=== PATIENT | male | born 1935 | race Caucasian/White ===

== ENCOUNTER 2016-11-10 16:21 | Emergency (ER) | payer MEDICARE, OTHER ==
--- NOTE | 2016-11-10 17:18 | UC ---
Dizzy HPI HPI Summary: 81 yo male with a 1 week hx of progressively worsening dizziness has a chronic cough which he attributes to post nasal drip no f/c no CP no worsening edema has had some dyspnea on exertion Had a stent yr ago symptoms worsen with turning head symptoms worsen while in car chronic dizziness (>2yrs) if he lays down and turns head to right - History Of Current Complaint Chief Complaint: UC Stated Complaint: LIGH HEADED Time Seen by Provider: 11/10/16 16:24 Hx Obtained From: Patient Onset/Duration: Gradual Onset, Lasting Days Timing: Constant Severity Initially: Mild Severity Currently: Moderate Pain Intensity: 0 Pain Scale Used: 0-10 Numeric Character: Dizzy - unsteady Aggravating Factor(s): Position Change Alleviating Factor(s): Nothing Associated Signs And Symptoms: Positive: SOB - with exertion, Unsteady Gait - Allergies/Home Medications Allergies/Adverse Reactions: Allergies Allergy/AdvReac Type Severity Reaction Status Date / Time Hydrocodone AdvReac Intermediate GI Upset Verified 11/14/14 13:04 Home Medications: Home Medications Fluticasone/Vilanterol MDI(NF) [Breo Ellipta MDI (NF)] 1 puff INH DAILY [History Confirmed 11/10/16] PMH/Surg Hx/FS Hx/Imm Hx Previously Healthy: Yes Endocrine History Of: Denies: Diabetes, Thyroid Disease Cardiovascular History Of: Reports: Cardiac Disorders - CAD Denies: Hypertension Respiratory History Of: Reports: Asthma Denies: COPD GI/ History Of: Denies: Ulcer - Surgical History Surgical History: Yes Surgery Procedure, Year, and Place: cardiac stent 2000, hernia x 2 - Family History Known Family History: Positive: Hypertension - Social History Alcohol Use: None Substance Use Type: None Smoking Status (MU): Never Smoked Tobacco Review of Systems Constitutional: Fatigue Skin: Negative Eyes: Negative ENT: Nasal Discharge Respiratory: Shortness Of Breath, Cough Cardiovascular: Negative Gastrointestinal: Negative Genitourinary: Negative Motor: Negative Neurovascular: Negative Musculoskeletal: Negative Neurological: Weakness Psychological: Negative All Other Systems Reviewed And Are Negative: Yes Physical Exam Triage Information Reviewed: Yes Appearance: Well-Appearing, No Pain Distress, Well-Nourished Vital Signs: Initial Vital Signs Temp 99 F 11/10/16 16:27 Pulse 98 11/10/16 16:27 Resp 20 11/10/16 16:27 BP 179/107 11/10/16 16:27 Pulse Ox 98 11/10/16 16:27 Vital Signs Reviewed: Yes Eyes: Positive: Conjunctiva Clear, Other: - no nystagmus ENT: Positive: Nasal congestion, TMs normal. Negative: Hearing grossly normal, Tonsillar exudate, Trismus, Muffled/hoarse voice Neck: Positive: Supple, Nontender Respiratory: Positive: No respiratory distress, No accessory muscle use Cardiovascular: Positive: RRR. Negative: Tachycardia, Bradycardia Musculoskeletal: Positive: Edema @ Neurological: Positive: Alert Psychological Exam: Normal Skin Exam: Normal Diagnostics - EKG Cardiac Rate: NL Cardiac Rhythm: Sinus: Normal Ectopy: PVCs ST Segment: Normal Dizzy Course/Dx - Differential Dx/Diagnosis Provider Diagnoses: dysequilibrium/motion sickness. elevated BP Discharge - Discharge Plan Condition: Stable Disposition: HOME Prescriptions: Meclizine HCl [Meclizine 25] 25 mg PO TID PRN #12 tab PRN Reason: Dizziness Patient Education Materials: Dizziness (ED) Referrals: Jameson Reyes MD [Primary Care Provider] - As Soon As Possible Additional Instructions: blood work pending recheck for new or worsening symptoms
--- NOTE | 2016-11-10 17:43 | RAD ---
Indication: Cough, dyspnea on exertion. Comparison: August 30, 2015 and June 07, 2010 CT. Technique: Upright AP and lateral chest views obtained with the patient in a wheelchair. Report: Unchanged moderate elevation of the LEFT hemidiaphragm. Associated mild LEFT basilar atelectasis. No alveolar consolidation concerning for pneumonia, focal pulmonary lesion, pleural effusion, pneumothorax. Negative for cardiomegaly. Unremarkable central pulmonary vasculature and mediastinal contours. IMPRESSION: No acute intrathoracic process evident. Chronic elevation of the LEFT hemidiaphragm with associated basilar atelectasis.
[2016-11-10] MEDS ORDERED: Meclizine TAB* 12.5 MG PO ONE ×2 (17:57→17:58)
[2016-11-10 18:03] VITALS: BP 146/92
[2016-11-11 12:12] LABS: Hematocrit 49 % (42-52); Mean Corpuscular HGB Conc 33 g/dl (31-36); Mean Corpuscular Hemoglobin 29 pg (27-31); Mean Corpuscular Volume 88 fL (80-94); Mean Platelet Volume 9 um3 (7.4-10.4); Red Blood Count 5.57 10^6/ul (4.0-5.4); Red Cell Distribution Width 17 % (10.5-15); White Blood Count 6.4 10^3/ul (3.5-10.8)
[2016-11-11 12:19] LABS: BUN/Creatinine Ratio 13.3 (8-20); Calcium 9.1 mg/dL (8.6-10.3); EGFR African American 51.9 (>60); EGFR Non-African American 40.3 (>60); Potassium 4.5 mmol/L (3.5-5.0)
== END 2016-11-10 18:25 | disposition home or self-care (01) ==
LOC: UCEAST 16:21
DX: R42 Dizziness and giddiness (principal); T75.3XXA Motion sickness, initial encounter; Y92.9 Unspecified place or not applicable; R03.0 Elevated blood-pressure reading, without diagnosis of hypertension; I25.10 Atherosclerotic heart disease of native coronary artery without angina pectoris; Z88.5 Allergy status to narcotic agent
CPT/HCPCS: 36415; 71020; 80048; 85025; 93005; 99213; A9270-GY; G0463

== ENCOUNTER 2016-12-07 16:19 | Emergency (ER) | payer MEDICARE, OTHER ==
[2016-12-07] MEDS ORDERED: Aspirin Low Dose CHEW TAB* 81 MG PO ONE (17:13)
[2016-12-07 17:47] LABS: Hematocrit 49 % (42-52); Hemoglobin 16.1 g/dl (14.0-18.0); Mean Corpuscular HGB Conc 33 g/dl (31-36); Mean Corpuscular Hemoglobin 29 pg (27-31); Mean Corpuscular Volume 88 fL (80-94); Mean Platelet Volume 9 um3 (7.4-10.4); Red Blood Count 5.59 10^6/ul (4.0-5.4); Red Cell Distribution Width 16 % (10.5-15); White Blood Count 10.3 10^3/ul (3.5-10.8)
[2016-12-07 17:48] LABS: Add Diff/Slide Review? Slide Review Added; Comments Flag Yes
--- NOTE | 2016-12-07 18:00 | RAD ---
Indication: Chest pain. Epigastric/heartburn pain beginning last night. Comparison: December 07, 2016 CT abdomen and November 10, 2016 chest radiograph. Technique: Dual energy PA chest Report: Unchanged moderate elevation of the LEFT hemidiaphragm with associated basilar compressive atelectasis. The lungs and pleural spaces are otherwise clear. Negative for pneumothorax. Upper normal heart size. Unremarkable central pulmonary vasculature and mediastinal contours. Negative for free air beneath the diaphragm. IMPRESSION: Chronic moderate elevation of the LEFT hemidiaphragm with associated basilar atelectasis. No acute cardiopulmonary process evident.
[2016-12-07 18:58] LABS: ALT 19 U/L (7-52); Albumin 4.1 g/dL (3.2-5.2); Alkaline Phosphatase 39 U/L (34-104); BUN/Creatinine Ratio 13.8 (8-20); Blood Urea Nitrogen 19 mg/dL (6-24); CO2 Carbon Dioxide 21 mmol/L (22-32); Calcium 9.6 mg/dL (8.6-10.3); Chloride 99 mmol/L (101-111); EGFR African American 63.8 (>60); EGFR Non-African American 49.6 (>60); Globulin 3.5 g/dL (2-4); Glucose 105 mg/dL (70-100); Sodium 130 mmol/L (133-145); Total Protein 7.6 g/dL (6.4-8.9)
[2016-12-07 19:00] LABS: Troponin I 0.01 ng/mL (<0.04)
--- NOTE | 2016-12-07 20:05 | ED ---
Pastor Truong Matthew, scribed for Jim Gomez MD on 12/07/16 at 1807 . Abdominal Pain/Male - HPI Summary HPI Summary: An 81 y/o male presents to the ED for constant epigastric abdominal pain since last night. The pain is rated between 5-7 in severity. The patient was sent to [facility] by his PCP for the epigastric abdominal pain, where an CT of the A/P was taken. He was then referred to the ED. Associated symptoms include abdominal bloating. He denies chest pain, nausea, vomiting, diarrhea, constipation, fever , and chills. He had a normal BM yesterday. He's also been on Abx for a recent sinus infection. - History of Current Complaint Chief Complaint: EDAbdPain Stated Complaint: ABD PAIN Time Seen by Provider: 12/07/16 17:54 Hx Obtained From: Patient Onset/Duration: Lasting Days, Still Present Timing: Constant Severity Initially: Moderate Severity Currently: Moderate Pain Intensity: 5 Pain Scale Used: 0-10 Numeric Location: Epigastric Radiates: No Associated Signs And Symptoms: Negative: Fever, Chest Pain, Constipation, Nausea , Vomiting, Diarrhea - Allergies/Home Medications Allergies/Adverse Reactions: Allergies Allergy/AdvReac Type Severity Reaction Status Date / Time Hydrocodone AdvReac Intermediate GI Upset Verified 12/07/16 14:21 PMH/Surg Hx/FS Hx/Imm Hx Endocrine/Hematology History: Denies: Hx Diabetes, Hx Thyroid Disease Cardiovascular History: Denies: Hx Hypertension Respiratory History: Reports: Hx Asthma Denies: Hx Chronic Obstructive Pulmonary Disease (COPD) GI History: Denies: Hx Ulcer - Surgical History Surgery Procedure, Year, and Place: cardiac stent 2000, hernia x 2 Infectious Disease History: No Infectious Disease History: Denies: Hx Clostridium Difficile, Hx Hepatitis, Hx Human Immunodeficiency Virus (HIV), Hx of Known/Suspected MRSA, Hx Shingles, Hx Tuberculosis, Hx Known/ Suspected VRE, Hx Known/Suspected VRSA, History Other Infectious Disease, Traveled Outside the [place] in Last 30 Days - Family History Known Family History: Positive: Hypertension - Social History Alcohol Use: None Substance Use Type: Reports: None Smoking Status (MU): Never Smoked Tobacco Review of Systems Constitutional: Negative Negative: Fever, Chills Eyes: Negative ENT: Negative Cardiovascular: Negative Negative: Chest Pain Respiratory: Negative Gastrointestinal: Other - abdominal bloating Positive: Abdominal Pain - epigastric . Negative: Vomiting, Diarrhea, Nausea Genitourinary: Negative Musculoskeletal: Negative Skin: Negative Neurological: Negative Psychological: Normal All Other Systems Reviewed And Are Negative: Yes Physical Exam - Summary Physical Exam Summary: VITAL SIGNS: Reviewed. GENERAL: Patient is a well developed and nourished male who is lying comfortable in the stretcher. Patient is not in any acute respiratory distress. HEAD AND FACE: Normocephalic and atraumatic. EYES: PERRLA, EOMI x 2, No injected conjunctiva. EARS: Hearing grossly intact. Ear canals and tympanic membranes are WNL. MOUTH: Oropharynx within normal limits. NECK: Supple, trachea is midline, no adenopathy, no JVD. CHEST: Symmetric, no tenderness at palpation LUNGS: Clear to auscultation bilaterally. No wheezing or crackles. CVS: RRR,, S1 and S2 present, no murmurs or gallops appreciated. ABDOMEN: Soft, positive periumbilical and epigastric tenderness. No signs of distention. Positive bowel sounds. No rebound no guarding, and no masses palpated. No abdominal bruit or pulsations. EXTREMITIES: FROM in all major joints, no edema, no cyanosis or clubbing. NEURO: Alert and oriented x 3. No acute neurological deficits. Speech is normal. SKIN: Dry and warm Triage Information Reviewed: Yes Vital Signs On Initial Exam: Initial Vitals Temp Pulse Resp BP Pulse Ox 98 F 97 18 167/98 99 12/07/16 16:22 12/07/16 16:22 12/07/16 16:22 12/07/16 16:22 12/07/16 16:22 Vital Signs Reviewed: Yes Diagnostics - Vital Signs Vital Signs Temp Pulse Resp BP Pulse Ox 12/07/16 17:33 35 89 12/07/16 17:31 135/101 12/07/16 16:22 98 F 97 18 167/98 99 - Laboratory Lab Results: Lab Results 12/07/16 12/07/16 Range/Units 17:35 17:35 WBC 10.3 (3.5-10.8) 10^3/ul RBC 5.59 H (4.0-5.4) 10^6/ul Hgb 16.1 (14.0-18.0) g/dl Hct 49 (42-52) % MCV 88 (80-94) fL MCH 29 (27-31) pg MCHC 33 (31-36) g/dl RDW 16 H (10.5-15) % Plt Count 181 (150-450) 10^3/ul MPV 9 (7.4-10.4) um3 Neut % (Auto) 76.9 (38-83) % Lymph % (Auto) 15.4 L (25-47) % Graves % (Auto) 6.2 (1-9) % Eos % (Auto) 0.5 (0-6) % Baso % (Auto) 1.0 (0-2) % Absolute Neuts (auto) 7.9 H (1.5-7.7) 10^3/ul Absolute Lymphs (auto) 1.6 (1.0-4.8) 10^3/ul Absolute Monos (auto) 0.6 (0-0.8) 10^3/ul Absolute Eos (auto) 0 (0-0.6) 10^3/ul Absolute Basos (auto) 0.1 (0-0.2) 10^3/ul Absolute Nucleated RBC 0.01 10^3/ul Nucleated RBC % 0.1 INR (Anticoag Therapy) 0.95 (0.89-1.11) Result Diagrams: 12/07/16 17:35 12/07/16 17:35 Lab Statement: Any lab studies that have been ordered have been reviewed, and results considered in the medical decision making process. - Radiology CXR Xray Interpretation: No Acute Changes - IMPRESSION: Chronic moderate elevation of the LEFT hemidiaphragm with associated basilar atelectasis. No acute cardiopulmonary process evident. Radiology Interpretation Completed By: Radiologist Abdominal Pain Fem Course/Dx - Course Assessment/Plan: An 81 y/o male presents to the ED for constant epigastric abdominal pain since last night. The pain is rated between 5-7 in severity. The patient was sent to [facility] by his PCP for the epigastric abdominal pain, where a CT of the A/P was taken. He was then referred to the ED. Associated symptoms include abdominal bloating. He denies chest pain, nausea, vomiting, diarrhea, constipation, fever, and chills. He had a normal BM yesterday. He's also been on Abx for a recent sinus infection. Blood shows WBC 5.5, sodium of 130, creatinine 1.38, glucose 105, troponin of 0.01. CXR shows chronic evaluation of left hemidiaphragm with no acute cardiopulmonary processes. Initially when the patient came into the ED, he did not c/o any chest pain. He c/o of periumbilical and epigastric pain. The patient had a CT of the A/P earlier today which showed a right sided bladder diverticulum. No masses or fluid collections and had no evidence of AAA. While in the ED, the patient reports that he passed gas and all of his symptoms have resolved. The patient was also observed in the ED for a couple of hours and the symptoms did not returned. I wanted to repeat the troponin after 4 hours; however, the patient does not want to wait and wants to go home. The patient was given instructions to return if he develops CP, SOB or any other abdominal or epigastric pain. Once again the patient was recommended to stay for a second troponin, but he refused. The patient will be going home with his who also agrees the patient is safe to go home. The patient is A&Ox3 and hemodynamically stable. - Diagnoses Differential Diagnosis/HQI/PQRI: ACS, AMI, Bowel Obstruction, Constipation, Gall Bladder Disease, Urinary Tract Infection Provider Diagnoses: Abdominal pain Discharge - Discharge Plan Condition: Stable Disposition: HOME Patient Education Materials: Abdominal Pain (ED) Referrals: Jameson Reyes MD [Primary Care Provider] - 2 Days Additional Instructions: Please follow-up with your primary care physician. The documentation as recorded by the Pastor jarvis Matthew accurately reflects the service I personally performed and the decisions made by , Jim Gomez MD.
[2016-12-07 20:23] VITALS: BP 145/97
== END 2016-12-07 20:23 | disposition home or self-care (01) ==
LOC: ED 16:19
DX: R10.13 Epigastric pain (principal); I25.10 Atherosclerotic heart disease of native coronary artery without angina pectoris; J98.11 Atelectasis; N28.1 Cyst of kidney, acquired; N32.3 Diverticulum of bladder
CPT/HCPCS: 36415; 71010; 74177; 80053; 82553; 83605; 83880; 84443; 84484; 85025; 85610; 93005; 99282; A9270-GY; Q9967

== ENCOUNTER 2019-05-06 08:51 | Emergency (ER) | payer MEDICARE, OTHER ==
--- OUTSIDE RECORDS SUMMARY | 2019-05-06 08:57 | XMS REPORT | Continuity of Care Document ---
:1935 External Reference #:[id number] Author Name NasiradriannaDiya Care Team Providers Name Role Phone Jim Cortes III, MD Primary Care Physician Unavailable Payers Date Identification Numbers Payment Provider Subscriber Policy Number: [id number] Medicare Fabiano Hinojosa Tae PayID: [id number] [address] [place] [address] Policy Number: [id number] Lifetime Benefit Solution Fabiano Strong PayID: [id number] [address] [place] [address] Effective: 2004 Policy Number: [id number] 10sec Fabiano Baronener Expires: 2014 Group Number: [id number] [id number] PayID: [place] [address] Problems Active Problems Provider Date Coronary arteriosclerosis Jameson Reyes M.D.,FACP Onset: 06/14/2008 Mixed hyperlipidemia Jameson Reyes M.D.,FACP Onset: 06/14/2008 Derangement of lateral meniscus Jameson Reyes M.D.,FACP Onset: 2007 Testicular hypofunction Jameson Reyes M.D.,FACP Onset: 05/08/2010 Degenerative joint disease of pelvis Jameson Reyes M.D.,FACP Onset: Chronic rhinitis Jameson Reyes M.D.,FACP Onset: 01/20/2013 Spinal stenosis of lumbar region Jameson Reyes M.D.,FACP Onset: 2013 Osteoarthritis of hip, unspecified Virgil Rowe NP Onset: 06/24/2015 Vertigo Aurelio Davidson NP Onset: 11/13/2016 Moderate persistent asthma Jameson Reyes M.D.,FACP Onset: 11/20/2016 Note: per Dr. Hernandez History of placement of stent for coronary artery Aurelio Davidson NP Onset: 12/2016 disease Note: RCA 2010 Chronic kidney disease stage 2 Jameson Reyes M.D.,FACP Onset: 12/11/2016 Inactive Problems Difficulty speaking Jose De Jesus Rosado M.D. Onset: 03/28/2015 Inactive: 08/30/2015 Renal function tests abnormal Aurelio Davidson NP Onset: 11/13/2016 Inactive: 12/11/2016 Atherosclerotic heart disease of [place] coronary Virgil Rowe NP Onset: 2014 artery without angina pectoris Inactive: 12/10/2017 Family History Date Family Member(s) Observation Comments General No Current Problems : (age Father due to Natural Causes possible prostate 74 Years) issues Mother due to Cancer, Breast () Siblings 7 3 now First Brother Peripheral Vascular Disease (PVD) First Brother Coronary Artery Disease (CAD) First Brother Hypercholesterolemia Second Brother Heart Disease Second Brother due to Lung Cancer () Second Brother Lung Cancer First Sister due to Leukemia () - CML? Second Sister Heart Murmur valve replacement Third Sister due to Alzheimer's () Disease Social History Type Date Description Comments Sex Unknown Marital Status Occupation Retired Tobacco Use Start: Unknown Never Smoked Cigarettes Tobacco Use Start: Unknown Never Smoked Cigars Tobacco Use Start: Unknown Never Smoked A Pipe Smoking Status Reviewed: 04/27/19 Never Smoked A Pipe Smokeless Tobacco Never Used Smokeless Tobacco ETOH Use 10/14/2017 Never used alcohol Recreational Drug Use Denies Drug Use Tobacco Use Start: Unknown Patient has never smoked Exercise Type/Frequency Exercises regularly Allergies, Adverse Reactions, Alerts Active Allergies Reaction Severity Comments Date oxycodone stomach upset 04/06/2008 Lipitor dyspepsia 06/14/2008 Lescol XL dyspepsia 06/14/2008 Fluconazole 12/03/2011 Hydrocodone GI upset 02/28/2012 Delatestryl difficulty speaking/sneezing 09/28/2014 Medications Active Medications SIG Qnty Indications Ordering Date Provider Nystatin-Triamcinol apply to affected 60gm Jameson Ibanez 08/24/2018 one area 2-3 times daily Juan Reyes,FACP until symptoms 091861-5.1Unit/GM-% resolve. Cream Shingrix 0.5 milliliters 2units Jameson Ibanez 04/25/2018 50mcg intramuscular now Juan Reyes,FACP Suspension Rec and 2-3 months later repeat Nika Allergy Jameson Ibanez 12/10/2017 Juan Reyes,FACP 60mg Tablets Tramadol HCL 1-2 tablets every 6 120tabs M48.06 Jim Mackenzie 11/04/2017 50mg hours as needed Juan Cortes Tablets Furosemide take 1 tablet every 90tabs Jameson Ibanez 10/08/2017 20mg morning as needed Juan Reyes FACP Tablets Zetia 1 by mouth every day 90tabs Jim Mackenzie 10/08/2017 10mg Tablets Juan Cortes Rosuvastatin take 1 tablet by 90tabs Jameson Ibanez 04/02/2017 Calcium mouth every evening Juan Reyes,FACP 10mg Tablets Flonase Allergy 1 spray each nostril 18.200ml Jameson Ibanez 04/02/2017 Relief twice a day as Juan Reyes,GE[facility] 50mcg/Act needed Suspension Metoprolol 1 by mouth every day 90tabs I25.10 Jim Mackenzie 12/07/2016 Succinate ER Juan Cortes 25mg Tablets ER 24HR Androgel Pump 5 actuations topical 225gm E29.1 Jim Mackenzie 09/28/2014 every day Juan Cortes 20.25mg/Act (1.62%) Gel Aspirin 1 by mouth every day I25.10 Jameson Ibanez 01/22/2014 81mg Juan Reyes,FACP Tablets Breo Ellipta one inhalation daily Unknown 200-25mcg/Inh Aerosol Celebrex once daily 90caps Jim Mackenzie 200mg Juan Cortes Capsules Mometasone Furoate Unknown 50mcg/Act Suspension History Medications Cephalexin three times a day 21caps Jameson Ibanez 04/11/2018 - 500mg by mouth [facility] 04/18/2018 Capsules Medrol medrol dosepack 1pak Jameson Ibanez 04/26/2017 - 4mg Tablets as directed Juan Reyes,FACP 10/08/2017 Augmentin by mouth twice a 20tabs Jameson Ibanez 04/02/2017 - 875-125mg day Juan Reyes,FACP 04/12/2017 Tablets Tramadol HCL ER 1 by mouth twice 60caps M48.06 Jameson Ibanez 04/02/2017 - 100mg a day as needed Juan Reyes,FACP 11/04/2017 Caps ER 24HR Doxycycline Hyclate bid Unknown 03/07/2017 - 04/02/2017 50mg Capsules Fluticasone 1 spray in each 16gm Jameson Ibanez 12/11/2016 - Propionate nostril twice Juan Reyes,FACP 12/11/2016 50mcg/Act daily Suspension Mucinex twice a day as 20tabs Jameson Ibanez 12/11/2016 - 600mg Tablets needed [facility] 10/08/2017 ER 12HR Desloratadine 1 qd PO 30tabs Jameson Ibanez 12/11/2016 - 5mg Juan Reyes,FACP 03/19/2017 Tablets Ranitidine 150 one by mouth 60tabs R10.13 Aurelio Davidson NP 12/07/2016 - Maximum Strength twice a day prn 04/02/2017 150mg Tablets Doxycycline 1 by mouth twice 20tabs Jameson Ibanez 11/30/2016 - Monohydrate a day for 10d Juan Reyes,FACP 12/10/2016 100mg Tablets Augmentin by mouth twice a 20tabs Jameson Ibanez 11/20/2016 - 875-125mg day Juan Reyes,FACP 11/30/2016 Tablets Meclizine HCL 1/2-1 by mouth 30tabs Jameson Ibanez 11/20/2016 - 25mg three times a day Juan Reyes,[facility] 12/07/2016 Tablets as needed Hydroxyzine HCL 1 tab by mouth 60tabs H81.49 Aurelio Davidson NP 11/13/2016 - 25mg every 6 hours as 11/16/2016 Tablets needed for vertigo Crestor 1 by mouth every 90tabs E78.2 Jameson Ibanez 07/16/2016 - 20mg Tablets day Juan Reyes,[facility] 03/19/2017 Flovent HFA inhale 2 puffs 10.600gm R06.2 Jameson Ibanez 08/30/2015 - 44mcg/Act twice a day Juan Reyes,[facility] 03/19/2017 Aerosol Ipratropium Shaniko instill 2 sprays 15units 473.9 Jameson Ibaenz 2014 - into each nostril Juan Reyes,[facility] 08/30/2015 0.06% Solution 3 to 4 times daily as needed Fluticasone 1 spray each 1units 472.0 Jim Mackenzie 03/04/2015 - Propionate nostril in in the Juan Cortes 03/25/2015 50mcg/Act morning Suspension Ventolin HFA 2 puffs by mouth 1units 466.0 Cedric 11/17/2014 - 3 times a day Juan Bunn 11/13/2016 108(90Base) mcg/Act with spacer Aerosol Lasix 1 by mouth every 30tabs 466.0 Cedric 11/17/2014 - 20mg Tablets day Juan Bunn 03/04/2015 Axiron 2 pump under each 120doses Jameson Ibanez 07/19/2014 - 30mg/Act under arm every Juan Reyes,[facility] 09/28/2014 Solution day for daily total of 4 pumps Androgel Pump 6 actuations 3boxes 257.2 Jameson Ibanez 01/22/2014 - topical every day Juan Reyes,[facility] 07/19/2014 20.25mg/Act (1.62%) Gel Furosemide 1 po qam for 2 30tabs 782.3 Jameson Ibanez 06/12/2013 - 20mg wks then as Juan Reyes,[facility] 01/22/2014 Tablets directed Celebrex 1 by mouth every 90caps R94.4 Jameson Ibanez 11/17/2012 - 200mg day; trial Juan Reyes,[facility] 11/20/2016 Capsules holding celebrex till we follow up Lidoderm apply topically 15units 786.59 Jameson Ibanez 02/28/2012 - 5% Patches qd for 12 hrs Juan Reyes,[facility] 11/17/2012 Medrol Dosepak as directed 1Pak 693.0 Jameson Ibanez 12/03/2011 - 4mg Juan Reyes,[facility] 12/11/2011 Tablets Lamisil po every day 14tabs 112.3 Jameson Ibanez 11/28/2011 - 250mg Tablets Juan Reyes,[facility] 12/14/2011 Fluconazole 2 qd for 1 days 8tabs 112.3 Jameson Ibanez 11/23/2011 - 100mg then qd for 7 Juan Reyes,[facility] 11/28/2011 Tablets days Nystatin/Triamcinolo Apply Topically 60units 112.3 Jameson Ibanez 2011 - ne Two Times A Day Juan Reyes,[facility] 01/22/2014 If Needed To 017434-1.1Unit/GM-% Affected Area Cream Clarinex 1 po qd prn 90tabs 473.9 Jim Mackenzie 08/08/2011 - 5mg Tablets Juan Cortes 01/22/2014 Fexofenadine HCL Take 1 Tablet 90tabs 473.9 Jameson Ibanez 02/20/2011 - 60mg Daily as Needed Juan Reyes,[facility] 08/08/2011 Tablets Meclizine HCL tid 45tabs 386.12 Jameson Ibanez 11/16/2010 - 25mg Juan Reyes,[facility] 08/08/2011 Tablets Tramadol HCL four times a day 120tabs R07.9 Aurelio Davidson NP 10/05/2010 - 50mg as needed 04/02/2017 Tablets Omeprazole 1 po qd for 2 wks 30caps 535.00 Jameson Ibanez 10/05/2010 - 20mg then prn Juan Reyes,[facility] 08/08/2011 Capsules Amoxicillin 2 bid for 10 days 40caps Jameson Ibanez 05/12/2010 - 500mg Juan Reyes,[facility] 05/18/2010 Capsules Lipo Flavonoic Plus take 2 tid [facility] 05/08/2010 - Juan Bunn 12/14/2011 Meclizine HCL tid 45tabs 386.12 [place] 05/08/2010 - 25mg Juan Bunn 06/01/2010 Tablets Flexeril 1 po tid prn 30tabs Jameson Ibanez 09/23/2009 - 10mg Tablets [facility] 12/03/2011 Trilipix take one capsule 90caps E78.2 Jameson Ibanez 05/26/2009 - 135mg by mouth every [facility] 03/19/[address] pollack Betamethasone apply as directed 60G 724.2 Jameson Ibanez 12/16/2008 - Valerate prn Juan Reyes,[facility] 08/08/2011 0.1% Ointment Flexeril 1 po tid prn 30tabs Jameson Ibanez 11/12/2008 - 10mg Tablets [facility] 05/26/2009 Darvocet-N 100 1 po qid prn 100tabs 786.50 Jameson Ibanez 11/12/2008 - 100 Juan Reyes,[facility] 10/05/2010 Tablets Aspirin 1 PO qd Jameson Ibanez 08/26/2008 - 81mg Tablets [facility] 01/22/2014 Nasonex 1 [place] Christiano Each 3units 477.8 Jim Mackenzie 08/26/2008 - 50mcg/Act Side qd Juan Cortes 11/17/2012 Suspension Crestor 1 by mouth every 90tabs E78.2 Jameson Ibanez 06/14/2008 - 20mg Tablets night [facility] 07/16/2016 Zetia 1 PO qd 90tabs 272.2 Jameson Ibanez 06/14/2008 - 10mg Tablets Juan Reyes,FACP 05/26/2009 Spiriva Respimat twice daily Unknown - 10/24/2018 1.25mcg/Act Aerosol Xyzal Allergy 24HR 1 by mouth every Unknown - day 12/10/2017 5mg Tablets Nika Allergy 1 by mouth every Unknown - 60mg day 10/08/2017 Tablets Azelastine HCL 2 sprays into Unknown - (Nasal) each nostril 2 12/11/2016 0.15% times per day Solution Flonase Allergy no longer using Unknown - Relief spray 1 spray in 12/11/2016 50mcg/Act each nostril Suspension twice daily Nika Allergy 1 by mouth every Unknown - 180mg day as needed 03/27/2016 Tablets Sudafed 12 Hour 1 tab by mouth Unknown - 120mg every 12 hours as 03/24/2015 Tablets ER 12HR needed Amoxicillin 1 tab by mouth Unknown - 875mg twice a day x 10 11/30/2014 Tablets d. Astepro one puff both 1units Jameson Ibanez - 0.15% sides once per Juan Reyes,[facility] 03/25/2015 Solution day as needed Hydroxyzine HCL 1 po qid prn 40tabs Unknown - 25mg 02/28/2012 Tablets Prednisone 1 PO bid for 1wk, 30tabs Jameson Ibanez - 10mg then 1 qd for 1 [facility] 02/28/2012 Tablets wk, then 1/2 qd for 1 wk Vytorin 1 PO QHS 90tabs 272.2 Jameson Ibanez - 10-80mg Juan [facility] 06/14/2008 Tablets Nika 1 tablet po qd 90tabs Jameson Ibanez - 60mg Tablets prn Juan Reyes,FACP 02/20/2011 Celebrex 1 po qd 90caps Jameson Ibanez - 200mg [facility] 11/17/2012 Capsules Medications Administered in Office Medication SIG Qnty Indications Ordering Provider Date Depomedrol 80MG Chetan Foster M.D. 02/27/2013 Injection Depomedrol 80MG Chetan Foster M.D. 10/21/2012 Injection Depomedrol 80MG Chetan Foster M.D. 07/10/2012 Injection Depomedrol 80MG Chetan Foster M.D. 10/15/2011 Injection Immunizations CPT Code Status Date Vaccine Reaction Lot # [id number] Given 04/27/2019 Tdap - shot tolerated well, 525np Tetanus/Diptheria/Acellular no immediate reaction. Pertussis 78724 Given 10/24/2018 Influenza Virus Vaccine, [id number] Quadrivalent, Split, Preservative Free 02472 Given 10/08/2017 Influenza Virus Vaccine, [id number] Quadrivalent, Split, Preservative Free 93423 Given 08/30/2015 Influenza Virus Vaccine, [id number] Quadrivalent, Split, Preservative Free 42952 Given 09/06/2014 Pneumococcal Conjugate [id number] Vaccine 13 Valent For Intramuscular Use 24216 Given 09/06/2014 Flu Vaccine Split Virus [id number] Preservative Free For Indiv 3Yr Older Q2038 Given 08/08/2011 Fluzone Vaccine [id number] 91625 Given 07/07/2010 Influenza Virus 3Yrs & Over [id number] 70505 Given 05/19/2007 Zoster (Zostavax) 92646 Given 08/08/2001 Pneumonia Vaccine Vital Signs Date Vital Result Comment 04/27/2019 1:17pm Height 71 inches 5'11" Weight 293.00 lb Heart Rate 78 /min BP Systolic Sitting 144 mmHg BP Diastolic Sitting 89 mmHg BMI (Body Mass Index) 40.9 kg/m2 10/24/2018 1:11pm Height 71 inches 5'11" Weight 284.50 lb Heart Rate 77 /min BP Systolic 143 mmHg BP Diastolic 88 mmHg BP Systolic Recheck 150 mmHg BP Diastolic Recheck 88 mmHg Body Temperature 97.7 F O2 % BldC Oximetry 95 % BMI (Body Mass Index) 39.7 kg/m2 04/25/2018 1:29pm Height 71 inches 5'11" Weight 280.12 lb Heart Rate 78 /min BP Systolic 110 mmHg BP Diastolic 64 mmHg O2 % BldC Oximetry 96 % BMI (Body Mass Index) 39.1 kg/m2 04/11/2018 11:42am Weight 284.00 lb Heart Rate 90 /min BP Systolic Sitting 150 mmHg BP Diastolic Sitting 84 mmHg Body Temperature 97.9 F O2 % BldC Oximetry 92 % 12/10/2017 2:55pm Weight 275.00 lb Heart Rate 88 /min BP Systolic Sitting 140 mmHg BP Diastolic Sitting 84 mmHg Body Temperature 97.6 F O2 % BldC Oximetry 94 % 10/08/2017 8:44am Weight 278.00 lb Heart Rate 87 /min BP Systolic Sitting 152 mmHg BP Diastolic Sitting 86 mmHg BP Systolic Recheck 132 mmHg BP Diastolic Recheck 80 mmHg Body Temperature 97.6 F O2 % BldC Oximetry 95 % 04/02/2017 9:21am Height 71 inches 5'11" Weight 262.00 lb Heart Rate 74 /min BP Systolic 130 mmHg BP Diastolic 86 mmHg O2 % BldC Oximetry 95 % BMI (Body Mass Index) 36.5 kg/m2 03/19/2017 2:23pm Weight 265.00 lb Heart Rate 96 /min BP Systolic Sitting 142 mmHg BP Diastolic Sitting 94 mmHg Body Temperature 98.8 F O2 % BldC Oximetry 97 % 12/12/2016 8:02am Height 71 inches 5'11" Weight 269.00 lb w/ shoes Heart Rate 84 /min reg BP Systolic 118 mmHg Rue lg cuff BP Diastolic 74 mmHg Rue lg cuff BP Systolic Sitting 110 mmHg Lue, lg cuff BP Diastolic Sitting 70 mmHg Lue, lg cuff BP Systolic Standing 116 mmHg Lue BP Diastolic Standing 80 mmHg Lue Respiratory Rate 16 /min BMI (Body Mass Index) 37.5 kg/m2 Ejection Fraction 55-60% as of 01/21/13 echo 12/11/2016 9:45am Weight 268.00 lb Heart Rate 80 /min BP Systolic 136 mmHg BP Diastolic 90 mmHg O2 % BldC Oximetry 97 % 12/07/2016 10:48am Weight 266.38 lb Heart Rate 89 /min BP Systolic Sitting 146 mmHg BP Diastolic Sitting 80 mmHg Body Temperature 98.1 F O2 % BldC Oximetry 97 % 11/26/2016 1:18pm Height 71 inches 5'11" Weight 268.00 lb Heart Rate 96 /min BP Systolic Sitting 148 mmHg BP Diastolic Sitting 78 mmHg Respiratory Rate 18 /min O2 % BldC Oximetry 95 % BMI (Body Mass Index) 37.4 kg/m2 11/20/2016 11:22am Weight 268.00 lb Heart Rate 70 /min BP Systolic Sitting 128 mmHg BP Diastolic Sitting 96 mmHg Body Temperature 98.5 F O2 % BldC Oximetry 98 % 11/13/2016 7:56am Weight 272.00 lb Heart Rate 89 /min BP Systolic Sitting 160 mmHg recheck 158/98 BP Diastolic Sitting 88 mmHg recheck 158/98 Body Temperature 97.9 F O2 % BldC Oximetry 96 % 03/27/2016 8:44am Height 70.50 inches 5'10.50" Weight 266.00 lb Heart Rate 92 /min BP Systolic Sitting 138 mmHg BP Diastolic Sitting 82 mmHg Body Temperature 98.6 F O2 % BldC Oximetry 98 % BMI (Body Mass Index) 37.6 kg/m2 08/30/2015 9:18am Height 70.50 inches 5'10.50" Weight 274.00 lb Heart Rate 88 /min BP Systolic 132 mmHg BP Diastolic 80 mmHg Body Temperature 98.6 F O2 % BldC Oximetry 94 % BMI (Body Mass Index) 38.8 kg/m2 06/24/2015 12:57pm Height 70.50 inches 5'10.50" Weight 273.00 lb Heart Rate 82 /min BP Systolic Sitting 142 mmHg BP Diastolic Sitting 88 mmHg Body Temperature 98.4 F O2 % BldC Oximetry 97 % BMI (Body Mass Index) 38.6 kg/m2 03/28/2015 2:19pm Height 70.50 inches 5'10.50" Weight 270.00 lb BP Systolic Sitting 78 mmHg BP Systolic Standing 130 mmHg BP Diastolic Standing 80 mmHg BMI (Body Mass Index) 38.2 kg/m2 03/25/2015 3:09pm Height 70.50 inches 5'10.50" Weight 270.38 lb Heart Rate 93 /min BP Systolic Sitting 132 mmHg BP Diastolic Sitting 84 mmHg Body Temperature 98.3 F O2 % BldC Oximetry 97 % BMI (Body Mass Index) 38.2 kg/m2 03/04/2015 11:19am Height 71 inches 5'11" Weight 265.00 lb Heart Rate 88 /min BP Systolic Sitting 124 mmHg BP Diastolic Sitting 80 mmHg Body Temperature 98.6 F O2 % BldC Oximetry 93 % BMI (Body Mass Index) 37.0 kg/m2 11/30/2014 11:22am Weight 271.50 lb Heart Rate 74 /min BP Systolic Sitting 120 mmHg BP Diastolic Sitting 88 mmHg Body Temperature 97.8 F O2 % BldC Oximetry 93 % 11/17/2014 8:15am Weight 270.00 lb Heart Rate 96 /min BP Systolic Sitting 140 mmHg BP Diastolic Sitting 88 mmHg Body Temperature 98.4 F O2 % BldC Oximetry 96 % 09/06/2014 9:58am Weight 284.25 lb Heart Rate 92 /min BP Systolic Sitting 158 mmHg BP Diastolic Sitting 92 mmHg Body Temperature 98.7 F 02/22/2014 9:31am Weight 275.25 lb Heart Rate 78 /min BP Systolic Sitting 130 mmHg BP Diastolic Sitting 90 mmHg Body Temperature 98.2 F 01/22/2014 8:38am Height 71 inches 5'11" Weight 270.25 lb Heart Rate 84 /min BP Systolic Sitting 136 mmHg BP Diastolic Sitting 76 mmHg Body Temperature 98.4 F BMI (Body Mass Index) 37.7 kg/m2 06/12/2013 2:09pm Weight 281.00 lb Heart Rate 82 /min BP Systolic Sitting 144 mmHg BP Diastolic Sitting 90 mmHg 01/20/2013 10:53am Height 70.5 inches 5'10.50" Weight 269.75 lb Heart Rate 80 /min BP Systolic Sitting 120 mmHg BP Diastolic Sitting 82 mmHg BMI (Body Mass Index) 38.2 kg/m2 11/17/2012 2:13pm Height 70.5 inches 5'10.50" Weight 274.00 lb Heart Rate 88 /min BP Systolic Sitting 120 mmHg BP Diastolic Sitting 80 mmHg BMI (Body Mass Index) 38.8 kg/m2 02/28/2012 9:24am Height 72 inches 6'0" Weight 271.50 lb Heart Rate 84 /min BP Systolic Sitting 120 mmHg BP Diastolic Sitting 88 mmHg BMI (Body Mass Index) 36.8 kg/m2 12/14/2011 2:34pm Height 72 inches 6'0" Weight 268.00 lb Heart Rate 96 /min BP Systolic Sitting 130 mmHg BP Diastolic Sitting 80 mmHg BMI (Body Mass Index) 36.3 kg/m2 12/03/2011 9:10am Height 72.5 inches 6'0.50" Weight 274.00 lb Heart Rate 80 /min BP Systolic Sitting 142 mmHg BP Diastolic Sitting 80 mmHg BMI (Body Mass Index) 36.6 kg/m2 11/23/2011 4:55pm Height 72.5 inches 6'0.50" Weight 274.00 lb Heart Rate 72 /min BP Systolic Sitting 132 mmHg L BP Diastolic Sitting 82 mmHg L BMI (Body Mass Index) 36.6 kg/m2 08/08/2011 8:56am Height 72.5 inches 6'0.50" Weight 273.00 lb Heart Rate 82 /min BP Systolic Sitting 108 mmHg BP Diastolic Sitting 80 mmHg BMI (Body Mass Index) 36.5 kg/m2 10/05/2010 8:39am Weight 267.00 lb Heart Rate 88 /min BP Systolic Sitting 116 mmHg BP Diastolic Sitting 76 mmHg 07/07/2010 1:59pm Weight 268.00 lb Heart Rate 78 /min BP Systolic Sitting 160 mmHg BP Diastolic Sitting 90 mmHg 06/01/2010 4:37pm Weight 267.00 lb Heart Rate 74 /min BP Systolic Sitting 132 mmHg BP Diastolic Sitting 90 mmHg Body Temperature 96.8 F tympanically O2 % BldC Oximetry 96 % 05/18/2010 3:43pm Weight 266.00 lb Heart Rate 88 /min BP Systolic Sitting 122 mmHg BP Diastolic Sitting 80 mmHg 05/08/2010 9:27am Weight 258.00 lb Heart Rate 91 /min BP Systolic Sitting 168 mmHg BP Diastolic Sitting 104 mmHg 05/26/2009 2:23pm Height 72 inches 6'0" Weight 270.00 lb Heart Rate 80 /min BP Systolic Sitting 132 mmHg BP Diastolic Sitting 88 mmHg BMI (Body Mass Index) 36.6 kg/m2 12/16/2008 1:48pm Height 72 inches 6'0" Weight 262.00 lb Heart Rate 70 /min BP Systolic Sitting 132 mmHg BP Diastolic Sitting 80 mmHg BMI (Body Mass Index) 35.5 kg/m2 10/22/2008 1:11pm Height 72 inches 6'0" Weight 272.00 lb Heart Rate 72 /min BP Systolic Sitting 126 mmHg BP Diastolic Sitting 80 mmHg BMI (Body Mass Index) 36.9 kg/m2 08/26/2008 9:10am Height 72 inches 6'0" Weight 279.00 lb Heart Rate 80 /min BP Systolic Sitting 142 mmHg BP Diastolic Sitting 88 mmHg BMI (Body Mass Index) 37.8 kg/m2 06/14/2008 9:04am Height 72 inches 6'0" Weight 276.00 lb Heart Rate 80 /min BP Systolic Sitting 154 mmHg BP Diastolic Sitting 94 mmHg BMI (Body Mass Index) 37.4 kg/m2 04/06/2008 1:28pm Height 72 inches 6'0" Weight 274.00 lb Heart Rate 76 /min BP Systolic Sitting 120 mmHg BP Diastolic Sitting 74 mmHg BMI (Body Mass Index) 37.2 kg/m2 Results Test Date Facility Test Result H/L Range Note Laboratory test 09/25/2018 [facility] Testosterone 402.58 N 240-[address] Total ng/[place] [address] [phone] PSA Screening 0.575 ng/mL N 0-4.000 1 Comp Metabolic Panel 09/25/2018 [facility] Sodium 141 mmol/L N 135-[address] [place], [place] [id number] [phone] Potassium 4.3 mmol/L N 3.5-5.0 Chloride 104 mmol/L N 101-111 Co2 Carbon Dioxide 31 mmol/L N 22-32 Anion Gap 6 mmol/L N 2-11 Glucose 95 mg/dL N 70-100 Blood Urea Nitrogen 18 mg/dL N 6-24 Creatinine 1.19 mg/dL High 0.67-1.17 BUN/Creatinine Ratio 15.1 N 8-20 Calcium 9.1 mg/dL N 8.6-10.3 Total Protein 6.3 g/dL Low 6.4-8.9 Albumin 3.9 g/dL N 3.2-5.2 Globulin 2.4 g/dL N 2-4 Albumin/Globulin Ratio 1.6 N 1-3 Total Bilirubin 1.20 mg/dL High 0.2-1.0 Alkaline Phosphatase 63 U/L N 34-104 Alt 12 U/L N 7-52 Ast 16 U/L N 13-39 Egfr Non- 58.5 >60 Egfr 70.8 >60 2 Lipid Profile 09/25/2018 [facility] Triglycerides 55 mg/dL 3 (Trig/Chol/HDL) [address] [place], [place] [id number] [phone] Cholesterol 138 mg/dL 4 HDL Cholesterol 52.4 mg/dL 5 LDL Cholesterol 75 mg/dL 6 Laboratory test 04/21/2018 [facility] Testosterone 235.98 Low 240-950 [address] Total ng/dL [place], [place] [id number] [phone] CBC Auto Diff 04/21/2018 [facility] White Blood 6.0 N 3.5- 10.[address] Count 10^3/[place] [address] [phone] Red Blood Count 5.06 10^6/uL N 4.00-5.40 Hemoglobin 14.7 g/dL N 14.0-18.0 Hematocrit 45 % N 42-52 Mean Corpuscular Volume 88 fL N 80-94 Mean Corpuscular Hemoglobin 29 pg N 27-31 Mean Corpuscular HGB Conc 33 g/dL N 31-36 Red Cell Distribution Width 15 % N 10.5-15 Platelet Count 201 10^3/uL N 150-450 Mean Platelet Volume 8.3 um3 N 7.4-10.4 Abs Neutrophils 3.6 10^3/uL N 1.5-7.7 Abs Lymphocytes 1.5 10^3/uL N 1.0-4.8 Abs Monocytes 0.5 10^3/uL N 0-0.8 Abs Eosinophils 0.3 10^3/uL N 0-0.6 Abs Basophils 0.1 10^3/uL N 0-0.2 Abs Nucleated RBC 0 10^3/uL Granulocyte % 60.5 % N 38-83 Lymphocyte % 25.5 % N 25-47 Monocyte % 7.9 % High 0-7 Eosinophil % 4.8 % N 0-6 Basophil % 1.3 % N 0-2 Nucleated Red Blood Cells % 0.1 Laboratory test 04/21/2018 [facility] PSA Screening 0.729 ng/mL N 0-4.000 8 finding [address] [place] [address] [phone] Comp Metabolic 04/21/2018 [facility] Sodium 138 mmol/L N 135- 145 Panel [address] [place] [address] [phone] Potassium 4.0 mmol/L N 3.5-5.0 Chloride 102 mmol/L N 101-111 Co2 Carbon Dioxide 28 mmol/L N 22-32 Anion Gap 8 mmol/L N 2-11 Glucose 89 mg/dL N 70-100 Blood Urea Nitrogen 23 mg/dL N 6-24 Creatinine 1.23 mg/dL High 0.67-1.17 BUN/Creatinine Ratio 18.7 N 8-20 Calcium 8.9 mg/dL N 8.6-10.3 Total Protein 6.5 g/dL N 6.4-8.9 Albumin 3.6 g/dL N 3.2-5.2 Globulin 2.9 g/dL N 2-4 Albumin/Globulin Ratio 1.2 N 1-3 Total Bilirubin 1.40 mg/dL High 0.2-1.0 Alkaline Phosphatase 55 U/L N 34-104 Alt 11 U/L N 7-52 Ast 15 U/L N 13-39 Egfr Non- 56.3 >60 Egfr 68.2 >60 9 Lipid Profile 04/21/2018 [facility] Triglycerides 57 mg/dL 10 (Trig/Chol/HDL) [address] [place] [address] [phone] Cholesterol 136 mg/dL 11 HDL Cholesterol 48.9 mg/dL 12 LDL Cholesterol 76 mg/dL 13 Basic Metabolic Panel 10/17/2017 [facility] Sodium 136 mmol/L N 133-[address] [place] [address] [phone] Potassium 4.0 mmol/L N 3.5-5.0 Chloride 101 mmol/L N 101-111 Co2 Carbon Dioxide 27 mmol/L N 22-32 Anion Gap 8 mmol/L N 2-11 Glucose 105 mg/dL High 70-100 Blood Urea Nitrogen 21 mg/dL N 6-24 Creatinine 1.35 mg/dL High 0.67-1.17 BUN/Creatinine Ratio 15.6 N 8-20 Calcium 8.9 mg/dL N 8.6-10.3 Egfr Non- 50.7 >60 Egfr 65.2 >60 14 Laboratory test 10/17/2017 [facility] B-Type Natriuretic 48 pg/ mL [address] [place] [address] [phone] Laboratory test 09/11/2017 [facility] Testosterone Total 354.09 N 240-[address] ng/dL 50 [place] [address] [phone] CBC Auto Diff 09/11/2017 [facility] White Blood Count 5.9 N 3.5-[address] 10^3/uL 0.8 [place] [address] [phone] Red Blood Count 5.50 10^6/uL High 4.0-5.4 Hemoglobin 15.9 g/dL N 14.0-18.0 Hematocrit 49 % N 42-52 Mean Corpuscular Volume 89 fL N 80-94 Mean Corpuscular Hemoglobin 29 pg N 27-31 Mean Corpuscular HGB Conc 33 g/dL N 31-36 Red Cell Distribution Width 16 % High 10.5-15 Platelet Count 143 10^3/uL Low 150-450 Mean Platelet Volume 8 um3 N 7.4-10.4 Abs Neutrophils 3.5 10^3/uL N 1.5-7.7 Abs Lymphocytes 1.7 10^3/uL N 1.0-4.8 Abs Monocytes 0.4 10^3/uL N 0-0.8 Abs Eosinophils 0.3 10^3/uL N 0-0.6 Abs Basophils 0.1 10^3/uL N 0-0.2 Abs Nucleated RBC 0.01 10^3/uL Granulocyte % 59.0 % N 38-83 Lymphocyte % 28.1 % N 25-47 Monocyte % 7.4 % N 1-9 Eosinophil % 4.5 % N 0-6 Basophil % 1.0 % N 0-2 Nucleated Red Blood Cells % 0.2 Laboratory test 09/11/2017 [facility] PSA Screening 0.565 ng/mL N 0-4.000 16 finding [address] [place] [address] [phone] Comp Metabolic 09/11/2017 [facility] Sodium 135 mmol/L N 133- 145 Panel [address] [place] [address] [phone] Potassium 4.6 mmol/L N 3.5-5.0 Chloride 102 mmol/L N 101-111 Co2 Carbon Dioxide 27 mmol/L N 22-32 Anion Gap 6 mmol/L N 2-11 Glucose 80 mg/dL N 70-100 Blood Urea Nitrogen 22 mg/dL N 6-24 Creatinine 1.36 mg/dL High 0.67-1.17 BUN/Creatinine Ratio 16.2 N 8-20 Calcium 9.1 mg/dL N 8.6-10.3 Total Protein 6.4 g/dL N 6.4-8.9 Albumin 3.7 g/dL N 3.2-5.2 Globulin 2.7 g/dL N 2-4 Albumin/Globulin Ratio 1.4 N 1-3 Total Bilirubin 1.40 mg/dL High 0.2-1.0 Alkaline Phosphatase 61 U/L N 34-104 Alt 9 U/L N 7-52 Ast 16 U/L N 13-39 Egfr Non- 50.3 >60 Egfr 64.7 >60 17 Lipid Profile 09/11/2017 [facility] Triglycerides 46 mg/dL 18 (Trig/Chol/HDL) [address] [place] [address] [phone] Cholesterol 159 mg/dL 19 HDL Cholesterol 52.5 mg/dL 20 LDL Cholesterol 97 mg/dL 21 CBC Auto Diff 05/13/2017 [facility] White Blood 9.3 10^3/uL N 3.5-10.[address] [place] [address] [phone] Red Blood Count 5.50 10^6/uL High 4.0-5.4 Hemoglobin 16.0 g/dL N 14.0-18.0 Hematocrit 49 % N 42-52 Mean Corpuscular Volume 89 fL N 80-94 Mean Corpuscular Hemoglobin 29 pg N 27-31 Mean Corpuscular HGB Conc 33 g/dL N 31-36 Red Cell Distribution Width 16 % High 10.5-15 Platelet Count 137 10^3/uL Low 150-450 Mean Platelet Volume 9 um3 N 7.4-10.4 Abs Neutrophils 7.6 10^3/uL N 1.5-7.7 Abs Lymphocytes 1.0 10^3/uL N 1.0-4.8 Abs Monocytes 0.6 10^3/uL N 0-0.8 Abs Eosinophils 0 10^3/uL N 0-0.6 Abs Basophils 0.1 10^3/uL N 0-0.2 Abs Nucleated RBC 0.01 10^3/uL N Granulocyte % 81.9 % N 38-83 Lymphocyte % 10.6 % Low 25-47 Monocyte % 6.5 % N 1-9 Eosinophil % 0.4 % N 0-6 Basophil % 0.6 % N 0-2 Nucleated Red Blood Cells % 0.1 N Laboratory test 05/13/2017 [facility] Immunoglobulin E 2.4 kU/L N <=214 [address] (Ige) [place] [address] [phone] Laboratory test 03/13/2017 [facility] Testosterone Total 706.70 N 240-950 [address] ng/[place] [address] [phone] CBC Auto Diff 03/13/2017 [facility] White Blood Count 6.2 N 3.5-10.[address] 10^3/[place] [address] [phone] Red Blood Count 5.50 10^6/uL High 4.0-5.4 Hemoglobin 16.0 g/dL N 14.0-18.0 Hematocrit 50 % N 42-52 Mean Corpuscular Volume 90 fL N 80-94 Mean Corpuscular Hemoglobin 29 pg N 27-31 Mean Corpuscular HGB Conc 32 g/dL N 31-36 Red Cell Distribution Width 16 % High 10.5-15 Platelet Count 159 10^3/uL N 150-450 Mean Platelet Volume 9 um3 N 7.4-10.4 Abs Neutrophils 3.7 10^3/uL N 1.5-7.7 Abs Lymphocytes 1.6 10^3/uL N 1.0-4.8 Abs Monocytes 0.5 10^3/uL N 0-0.8 Abs Eosinophils 0.2 10^3/uL N 0-0.6 Abs Basophils 0.2 10^3/uL N 0-0.2 Abs Nucleated RBC 0 10^3/uL N Granulocyte % 60.3 % N 38-83 Lymphocyte % 25.3 % N 25-47 Monocyte % 7.3 % N 1-9 Eosinophil % 3.9 % N 0-6 Basophil % 3.2 % High 0-2 Nucleated Red Blood Cells % 0 N Laboratory test 03/13/2017 [facility] PSA Screening 0.535 ng/mL N 0-4.000 24 finding [address] [place] [address] [phone] Comp Metabolic 03/13/2017 [facility] Sodium 133 mmol/L N 133- 145 Panel [address] [place] [address] [phone] Potassium 4.4 mmol/L N 3.5-5.0 Chloride 100 mmol/L Low 101-111 Co2 Carbon Dioxide 28 mmol/L N 22-32 Anion Gap 5 mmol/L N 2-11 Glucose 81 mg/dL N 70-100 Blood Urea Nitrogen 18 mg/dL N 6-24 Creatinine 1.54 mg/dL High 0.67-1.17 BUN/Creatinine Ratio 11.7 N 8-20 Calcium 9.4 mg/dL N 8.6-10.3 Total Protein 6.6 g/dL N 6.4-8.9 Albumin 3.8 g/dL N 3.2-5.2 Globulin 2.8 g/dL N 2-4 Albumin/Globulin Ratio 1.4 N 1-3 Total Bilirubin 0.90 mg/dL N 0.2-1.0 Alkaline Phosphatase 32 U/L Low 34-104 Alt 9 U/L N 7-52 Ast 17 U/L N 13-39 Egfr Non- 43.6 N >60 Egfr 56.0 N >60 25 Lipid Profile 03/13/2017 [facility] Triglycerides 48 mg/dL N 26 (Trig/Chol/HDL) [address] [place] [address] [phone] Cholesterol 123 mg/dL N 27 HDL Cholesterol 37.2 mg/dL N 28 LDL Cholesterol 76 mg/dL N 29 Laboratory test 12/10/2016 [facility] Lipase 13 U/L N 11.0- 82.[address] [place] [address] [phone] Rapid Influenza 12/07/2016 [facility] Influenza A NEGATIVE N Negative 30 A & B Molecular [address] [place] [address] [phone] Influenza B Molecular NEGATIVE N Negative CBC Auto Diff 12/07/2016 [facility] White Blood 10.3 10^3/uL N 3.5-10.[address] [place] [address] [phone] Red Blood Count 5.59 10^6/uL High 4.0-5.4 Hemoglobin 16.1 g/dL N 14.0-18.0 Hematocrit 49 % N 42-52 Mean Corpuscular Volume 88 fL N 80-94 Mean Corpuscular Hemoglobin 29 pg N 27-31 Mean Corpuscular HGB Conc 33 g/dL N 31-36 Red Cell Distribution Width 16 % High 10.5-15 Platelet Count 181 10^3/uL N 150-450 Mean Platelet Volume 9 um3 N 7.4-10.4 Abs Neutrophils 7.9 10^3/uL High 1.5-7.7 Abs Lymphocytes 1.6 10^3/uL N 1.0-4.8 Abs Monocytes 0.6 10^3/uL N 0-0.8 Abs Eosinophils 0 10^3/uL N 0-0.6 Abs Basophils 0.1 10^3/uL N 0-0.2 Abs Nucleated RBC 0.01 10^3/uL N Granulocyte % 76.9 % N 38-83 Lymphocyte % 15.4 % Low 25-47 Monocyte % 6.2 % N 1-9 Eosinophil % 0.5 % N 0-6 Basophil % 1.0 % N 0-2 Nucleated Red Blood Cells % 0.1 N Inr/Protime 12/07/2016 [facility] Inr 0.95 N 0.89-1.11 [address] [place] [address] [phone] Laboratory test 12/07/2016 [facility] Lactic Acid 0.8 mmol/L N 0.5-2.0 31 finding [address] [place] [address] [phone] B-Type Natriuretic Peptide BNP 39 pg/mL N 32 Comp Metabolic Panel 12/07/2016 [facility] Sodium 130 mmol/L Low 133-145 [address] [place] [address] [phone] Potassium TNP mmol/L N 3.5-5.0 33 Chloride 99 mmol/L Low 101-111 Co2 Carbon Dioxide 21 mmol/L Low 22-32 Anion Gap TNP mmol/L N 2-11 Glucose 105 mg/dL High 70-100 Blood Urea Nitrogen 19 mg/dL N 6-24 Creatinine 1.38 mg/dL High 0.67-1.17 BUN/Creatinine Ratio 13.8 N 8-20 Calcium 9.6 mg/dL N 8.6-10.3 Total Protein 7.6 g/dL N 6.4-8.9 Albumin 4.1 g/dL N 3.2-5.2 Globulin 3.5 g/dL N 2-4 Albumin/Globulin Ratio 1.2 N 1-3 Total Bilirubin 0.80 mg/dL N 0.2-1.0 Alkaline Phosphatase 39 U/L N 34-104 Alt 19 U/L N 7-52 Ast TNP U/L N 13-39 34 Egfr Non- 49.6 N >60 Egfr 63.8 N >60 35 Laboratory test 12/07/2016 [facility] Troponin-I 0.01 ng/mL N <0.04 [address] (TnI) [place] [address] [phone] CKMB 12/07/2016 [facility] CKMB ng/mL 4.7 ng/mL N 0.6-6.[address] [place] [address] [phone] Laboratory test 12/07/2016 [facility] TSH (Thyroid 1.60 N 0.34 -5.[address] Stim Horm) mcIU/[place] [address] [phone] Laboratory test 12/07/2016 [facility] Influenza A & B SEE RESULT [address] [place] [address] [phone] Comp Metabolic 11/28/2016 [facility] Sodium 133 mmol/L N 133- [address] [place] [address] [phone] Potassium 4.2 mmol/L N 3.5-5.0 Chloride 99 mmol/L Low 101-111 Co2 Carbon Dioxide 29 mmol/L N 22-32 Anion Gap 5 mmol/L N 2-11 Glucose 77 mg/dL N 70-100 Blood Urea Nitrogen 21 mg/dL N 6-24 Creatinine 1.49 mg/dL High 0.67-1.17 BUN/Creatinine Ratio 14.1 N 8-20 Calcium 9.4 mg/dL N 8.6-10.3 Total Protein 7.0 g/dL N 6.4-8.9 Albumin 3.8 g/dL N 3.2-5.2 Globulin 3.2 g/dL N 2-4 Albumin/Globulin Ratio 1.2 N 1-3 Total Bilirubin 0.80 mg/dL N 0.2-1.0 Alkaline Phosphatase 41 U/L N 34-104 Alt 12 U/L N 7-52 Ast 19 U/L N 13-39 Egfr Non- 45.4 N >60 Egfr 58.4 N >60 38 Creatinine Clearance 11/28/2016 [facility] Urine Collection Time [address] [place] [address] [phone] Urine Total Volume 1500 mL N Creatinine 1.44 mg/dL High 0.51-0.95 Urine Random Creatinine 123.59 mg/dL N Creatinine Clearance 89 mL/min Low 97-137 Total Protein 24HR 11/28/2016 [facility] Urine Collection Time 24 N Urine [address] [place] [address] [phone] Urine Total Volume 1500 mL N Urine Random Total Protein 10 mg/dL N Urine Total Protein/24HR 150 mg/24Hr N 0-165 CBC Auto Diff 11/10/2016 [facility] White Blood 6.4 10^3/uL N 3.5-10.[address] [place] [address] [phone] Red Blood Count 5.57 10^6/uL High 4.0-5.4 Hemoglobin 16.0 g/dL N 14.0-18.0 Hematocrit 49 % N 42-52 Mean Corpuscular Volume 88 fL N 80-94 Mean Corpuscular Hemoglobin 29 pg N 27-31 Mean Corpuscular HGB Conc 33 g/dL N 31-36 Red Cell Distribution Width 17 % High 10.5-15 Platelet Count 158 10^3/uL N 150-450 Mean Platelet Volume 9 um3 N 7.4-10.4 Abs Neutrophils 4.3 10^3/uL N 1.5-7.7 Abs Lymphocytes 1.2 10^3/uL N 1.0-4.8 Abs Monocytes 0.5 10^3/uL N 0-0.8 Abs Eosinophils 0.4 10^3/uL N 0-0.6 Abs Basophils 0 10^3/uL N 0-0.2 Abs Nucleated RBC 0.01 10^3/uL N Granulocyte % 67.6 % N 38-83 Lymphocyte % 18.3 % Low 25-47 Monocyte % 7.7 % N 1-9 Eosinophil % 5.6 % N 0-6 Basophil % 0.8 % N 0-2 Nucleated Red Blood Cells % 0.1 N Basic Metabolic Panel 11/10/2016 [facility] Sodium 134 mmol/L N 133-[address] [place] [address] [phone] Potassium 4.5 mmol/L N 3.5-5.0 Chloride 102 mmol/L N 101-111 Co2 Carbon Dioxide 31 mmol/L N 22-32 Anion Gap 1 mmol/L Low 2-11 Glucose 97 mg/dL N 70-100 Blood Urea Nitrogen 22 mg/dL N 6-24 Creatinine 1.65 mg/dL High 0.67-1.17 BUN/Creatinine Ratio 13.3 N 8-20 Calcium 9.1 mg/dL N 8.6-10.3 Egfr Non- 40.3 N >60 Egfr 51.9 N >60 40 Laboratory test 07/10/2016 [facility] Testosterone 773.86 N 240-[address] Total ng/[place] [address] [phone] Liver Function 07/10/2016 [facility] Total Protein 6.7 g/dL N 6.4-8.[address] [place] [address] [phone] Albumin 3.9 g/dL N 3.2-5.2 Globulin 2.8 g/dL N 2-4 Albumin/Globulin Ratio 1.4 N 1-3 Total Bilirubin 0.60 mg/dL N 0.2-1.0 Direct Bilirubin 0.20 mg/dL High 0.03-0.18 Indirect Bilirubin 0.4 mg/dL N 0.3-1.0 Alkaline Phosphatase 34 U/L N 34-104 Alt 11 U/L N 7-52 Ast 18 U/L N 13-39 CBC Auto Diff 07/10/2016 [facility] White Blood 5.4 10^3/uL N 3.5-10.[address] [place] [address] [phone] Red Blood Count 5.19 10^6/uL N 4.0-5.4 Hemoglobin 15.0 g/dL N 14.0-18.0 Hematocrit 46 % N 42-52 Mean Corpuscular Volume 89 fL N 80-94 Mean Corpuscular Hemoglobin 29 pg N 27-31 Mean Corpuscular HGB Conc 33 g/dL N 31-36 Red Cell Distribution Width 15 % N 10.5-15 Platelet Count 188 10^3/uL N 150-450 Mean Platelet Volume 9 um3 N 7.4-10.4 Abs Neutrophils 3.1 10^3/uL N 1.5-7.7 Abs Lymphocytes 1.5 10^3/uL N 1.0-4.8 Abs Monocytes 0.5 10^3/uL N 0-0.8 Abs Eosinophils 0.3 10^3/uL N 0-0.6 Abs Basophils 0.1 10^3/uL N 0-0.2 Abs Nucleated RBC 0 10^3/uL N Granulocyte % 56.7 % N 38-83 Lymphocyte % 27.9 % N 25-47 Monocyte % 8.9 % N 1-9 Eosinophil % 5.4 % N 0-6 Basophil % 1.1 % N 0-2 Nucleated Red Blood Cells % 0 N Laboratory test 07/10/2016 [facility] PSA Screening 0.497 ng/mL N 0-4.000 [address] [place] [address] [phone] Lipid Profile 03/21/2016 [facility] Triglycerides 45 mg/dL N 42 (Trig/Chol/HDL) [address] [place] [address] [phone] Cholesterol 130 mg/dL N 43 HDL Cholesterol 46.6 mg/dL N 44 LDL Cholesterol 74 mg/dL N 45 Laboratory test 03/21/2016 [facility] Glucose 77 mg/dL N 70- 100 [address] [place] [address] [phone] Liver Function 09/09/2015 [facility] Total Protein 6.6 g/dL N 6.4-8.[address] [place] [address] [phone] Albumin 3.9 g/dL N 3.2-5.2 Globulin 2.7 g/dL N 2-4 Albumin/Globulin Ratio 1.4 N 1-3 Total Bilirubin 0.70 mg/dL N 0.2-1.0 Direct Bilirubin 0.20 mg/dL High 0.03-0.18 Indirect Bilirubin 0.5 mg/dL N 0.3-1.0 Alkaline Phosphatase 41 U/L N 34-104 Alt 11 U/L N 7-52 Ast 17 U/L N 13-39 Testosterone 09/09/2015 [facility] Free 14.74 Abnormal 0.40- 10.66 47 Free & Total [address] Testosterone ng/[place] [address] ng/dl [phone] Testosterone 614 ng/dL N 240-950 48 CBC Auto Diff 09/09/2015 [facility] White Blood 5.7 10^3/uL N 4.8-10.[address] [place] [address] [phone] Red Blood Count 5.39 10^6/uL N 4.0-5.4 Hemoglobin 15.2 g/dL N 14.0-18.0 Hematocrit 48 % N 42-52 Mean Corpuscular Volume 89 fL N 80-94 Mean Corpuscular Hemoglobin 28 pg N 27-31 Mean Corpuscular HGB Conc 32 g/dL N 31-36 Red Cell Distribution Width 16 % High 10.5-15 Platelet Count 174 10^3/uL N 150-450 Mean Platelet Volume 9 um3 N 7.4-10.4 Abs Neutrophils 3.4 10^3/uL N 1.5-7.7 Abs Lymphocytes 1.4 10^3/uL N 1.0-4.8 Abs Monocytes 0.5 10^3/uL N 0-0.8 Abs Eosinophils 0.3 10^3/uL N 0-0.6 Abs Basophils 0.1 10^3/uL N 0-0.2 Abs Nucleated RBC 0 10^3/uL N Granulocyte % 59.7 % N 38-83 Lymphocyte % 24.3 % Low 25-47 Monocyte % 8.6 % N 1-9 Eosinophil % 6.0 % N 0-6 Basophil % 1.4 % N 0-2 Nucleated Red Blood Cells % 0 N Lipid Profile 04/07/2015 [facility] Triglycerides 44 mg/dL N 49 (Trig/Chol/HDL) [address] [place] [address] [phone] Cholesterol 109 mg/dL N 50 HDL Cholesterol 37.2 mg/dL N 51 LDL Cholesterol 63 mg/dL N 52 Laboratory test 04/07/2015 [facility] Glucose 74 mg/dL N 70- [address] [place] [address] [phone] Testosterone Free 01/03/2015 [facility] Free Testosterone 11 ng/ dL N 9-30 53 & Total [address] ng/[place] [address] [phone] Testosterone 485 ng/dL N 240-950 54 Laboratory test 01/03/2015 [facility] PSA Screening 0.279 N 0- 4.000 [address] ng/[place] [address] [phone] Testosterone Free 11/05/2014 Free 9.0 ng/dL N 9-30 56 & Total Testosterone ng/dl Testosterone 374 ng/dL N 240-950 57 CBC Auto Diff 09/06/2014 White Blood Count 5.3 10^3/uL N 4.8-10.8 Red Blood Count 5.05 10^6/uL N 4.0-5.4 Hemoglobin 14.1 g/dL N 14.0-18.0 Hematocrit 43 % N 42-52 Mean Corpuscular Volume 85 fL N 80-94 Mean Corpuscular Hemoglobin 28 pg N 27-31 Mean Corpuscular HGB Conc 33 g/dL N 31-36 Red Cell Distribution Width 16 % High 10.5-15 Platelet Count 185 10^3/uL N 150-450 Mean Platelet Volume 9 um3 N 7.4-10.4 Abs Neutrophils 3.1 10^3/uL N 1.5-7.7 Abs Lymphocytes 1.4 10^3/uL N 1.0-4.8 Abs Monocytes 0.5 10^3/uL N 0-0.8 Abs Eosinophils 0.3 10^3/uL N 0-0.6 Abs Basophils 0.1 10^3/uL N 0-0.2 Abs Nucleated RBC 0 10^3/uL N Granulocyte % 57.6 % N 38-83 Lymphocyte % 25.9 % N 25-47 Monocyte % 9.4 % High 1-9 Eosinophil % 6.2 % High 0-6 Basophil % 0.9 % N 0-2 Nucleated Red Blood Cells % 0.1 N Laboratory test finding 09/06/2014 Testosterone 94.73 ng/dL Low 240-950 Liver Function Panel 09/06/2014 Total Protein 6.7 g/dL N 6.4-8.9 Albumin 3.8 g/dL N 3.2-5.2 Globulin 2.9 g/dL N 2-4 Albumin/Globulin Ratio 1.3 N 1-3 Total Bilirubin 0.60 mg/dL N 0.2-1.0 Direct Bilirubin 0.10 mg/dL N 0.03-0.18 Indirect Bilirubin 0.5 mg/dL N 0.3-1.0 Alkaline Phosphatase 40 U/L N 34-104 Alt 10 U/L N 7-52 Ast 16 U/L N 13-39 Laboratory test finding 09/06/2014 LDL Cholesterol Direct 65 mg/dL N 58 Cholesterol 117 mg/dL N 59 HDL Cholesterol 39.8 mg/dL N 60 Ua Routine 09/06/2014 [employer] Ua Specific [place] 1.005 Ua PH 6.5 Ua Color yellow Ua Appera clear Ua WBC neg Ua Protein neg Ua Glucose neg Ua Ketones neg Ua Bilirubin small Ua Urobilinogen norm Ua Nitrite neg Ua Occult Blood neg Laboratory test 06/16/2014 Testosterone 263.95 ng/dL N 240-950 finding Laboratory test 04/02/2014 [facility] Testosterone 140.66 ng/dL Low 240-950 61, 62 finding [address] [place] [address] [phone] Lipid Profile 04/02/2014 [facility] Triglycerides 46 mg/dL N 63 (Trig/Chol/HDL) [address] [place] [address] [phone] Cholesterol 135 mg/dL N 64 HDL Cholesterol 47.5 mg/dL N 65 LDL Cholesterol 78 mg/dL N 66 Liver Function 04/02/2014 [facility] Total Protein 6.5 g/dL N 6.4-8.9 Panel [address] [place] [address] [phone] Albumin 3.9 g/dL N 3.2-5.2 Globulin 2.6 g/dL N 2-4 Albumin/Globulin Ratio 1.5 N 1-3 Total Bilirubin 0.50 mg/dL N 0.2-1.0 Direct Bilirubin 0.10 mg/dL N 0.03-0.18 Indirect Bilirubin 0.4 mg/dL N 0.3-1.0 Alkaline Phosphatase 37 U/L N 34-104 Alt 11 U/L N 7-52 Ast 17 U/L N 13-39 CBC Auto Diff 04/02/2014 [facility] White Blood 5.1 10^3/uL N 4.8-10.[address] [place] [address] [phone] Red Blood Count 4.57 10^6/uL N 4.0-5.4 Hemoglobin 13.3 g/dL Low 14.0-18.0 Hematocrit 39 % Low 42-52 Mean Corpuscular Volume 85 fL N 80-94 Mean Corpuscular Hemoglobin 29 pg N 27-31 Mean Corpuscular HGB Conc 34 g/dL N 31-36 Red Cell Distribution Width 15 % N 10.5-15 Platelet Count 181 10^3/uL N 150-450 Mean Platelet Volume 9 um3 N 7.4-10.4 Abs Neutrophils 2.6 10^3/uL N 1.5-7.7 Abs Lymphocytes 1.6 10^3/uL N 1.0-4.8 Abs Monocytes 0.4 10^3/uL N 0-0.8 Abs Eosinophils 0.5 10^3/uL N 0-0.6 Abs Basophils 0.1 10^3/uL N 0-0.2 Abs Nucleated RBC 0.01 10^3/uL N Granulocyte % 50.9 % N 38-83 Lymphocyte % 30.2 % N 25-47 Monocyte % 7.8 % N 1-9 Eosinophil % 9.8 % High 0-6 Basophil % 1.3 % N 0-2 Nucleated Red Blood Cells % 0.1 N Lipid Profile 01/19/2014 [facility] Triglycerides 41 mg/dL N 67 (Trig/Chol/HDL) [address] [place] [address] [phone] Cholesterol 137 mg/dL N 68 HDL Cholesterol 53.8 mg/dL N 69 LDL Cholesterol 75 mg/dL N 70 CBC Auto Diff 06/12/2013 [facility] White Blood 5.6 10^3/uL 4.8-10.[address] [place] [address] [phone] Red Blood Count 4.62 10^6/uL 4.0-5.4 Hemoglobin 13.1 g/dL Low 14.0-18.0 Hematocrit 40 % Low 42-52 Mean Corpuscular Volume 87 fL 80-94 Mean Corpuscular Hemoglobin 29 pg 27-31 Mean Corpuscular HGB Conc 33 g/dL 31-36 Red Cell Distribution Width 16 % High 10.5-15 Platelet Count 192 10^3/uL 150-450 Mean Platelet Volume 9 um3 7.4-10.4 Abs Neutrophils 3.6 10^3/uL 1.5-7.7 Abs Lymphocytes 1.2 10^3/uL 1.0-4.8 Abs Monocytes 0.5 10^3/uL 0-0.8 Abs Eosinophils 0.3 10^3/uL 0-0.6 Abs Basophils 0 10^3/uL 0-0.2 Abs Nucleated RBC 0 10^3/uL Granulocyte % 63.9 % 38-83 Lymphocyte % 21.8 % Low 25-47 Monocyte % 8.8 % 1-9 Eosinophil % 4.7 % 0-6 Basophil % 0.8 % 0-2 Nucleated Red Blood Cells % 0.1 Comp Metabolic Panel 06/12/2013 [facility] Sodium 134 mmol/L 133-[address] [place] [address] [phone] Potassium 4.9 mmol/L 3.5-5.0 Chloride 97 mmol/L Low 101-111 Co2 Carbon Dioxide 30.0 mmol/L 22-32 Anion Gap 7.0 mmol/L 2-11 Glucose 99 mg/dL 70-100 Blood Urea Nitrogen 20 mg/dL 6-24 Creatinine 1.20 mg/dL 0.50-1.40 BUN/Creatinine Ratio 16.7 8-20 Calcium 9.3 mg/dL 8.1-9.9 Total Protein 6.1 g/dL Low 6.2-8.1 Albumin 3.8 g/dL 3.2-5.2 Globulin 2.3 g/dL 2-4 Albumin/Globulin Ratio 1.7 1-3 Total Bilirubin 0.5 mg/dL 0.4-1.5 Alkaline Phosphatase 42 U/L 30-110 Alt 13 U/L Low 14-54 Ast 21 U/L 12-42 Egfr Non- 58.7 >60 Egfr 75.5 >60 71 Laboratory 06/12/2013 [facility] TSH (Thyroid 2.75 0.34-5.60 test finding Stimulating Horm) miu/[place] [address] [phone] Lipid Profile 11/25/2012 [facility] Triglycerides 34 mg/dL Low 40-200 (Trig/Chol/HDL ) [place] [address] [phone] Cholesterol 144 mg/dL Less than 200 HDL Cholesterol 61 mg/dL High 40-60 72 Cholesterol/HDL Ratio 2.4 Average 1-4.44 LDL Cholesterol 76.2 mg/dL Less Than 100 73 Comp Metabolic Panel 11/25/2012 [facility] Sodium 138 mmol/L 133-[address] [place] [address] [phone] Potassium 4.4 mmol/L 3.5-5.0 Chloride 105 mmol/L 101-111 Co2 Carbon Dioxide 26.0 mmol/L 22-32 Anion Gap 7.0 mmol/L 2-11 Glucose 85 mg/dL 70-100 Blood Urea Nitrogen 18 mg/dL 6-24 Creatinine 1.30 mg/dL 0.50-1.40 BUN/Creatinine Ratio 13.8 8-20 Calcium 9.4 mg/dL 8.1-9.9 Total Protein 6.0 g/dL Low 6.2-8.1 Albumin 3.7 g/dL 3.2-5.2 Globulin 2.3 g/dL 2-4 Albumin/Globulin Ratio 1.6 1-3 Total Bilirubin 0.7 mg/dL 0.4-1.5 Alkaline Phosphatase 38 U/L 30-110 Alt 18 U/L 14-54 Ast 21 U/L 12-42 Egfr Non- 53.7 >60 Egfr 69.0 >60 74 Lipid Panel - 11/25/2012 [facility] Creatine 59 U/L 0-[address] [place] [address] [phone] Comp Metabolic 02/28/2012 [facility] Sodium 134 Low 135-[address] mmol/[place] [address] [phone] Potassium 4.3 mmol/L 3.5-5.0 Chloride 102 mmol/L 101-111 Co2 (Carbon Dioxide) 26.0 mmol/L 22-32 Anion Gap 6.0 mmol/L 2-11 76 Glucose 70 mg/dL 70-100 BUN 24 mg/dL 6-24 Creatinine 1.2 mg/dL 0.50-1.40 One Over Creatinine 0.83 BUN/Creatinine Ratio 20.0 8-20 Calcium 9.4 mg/dL 8.1-9.9 Total Protein 6.5 GM/DL 6.2-8.1 Albumin 4.1 GM/DL 3.2-5.2 Globulin 2.4 GM/DL 2-4 Albumin/Globulin Ratio 1.7 1-3 Bilirubin Total 1.0 mg/dL 0.4-1.5 77 Alkaline Phosphatase 39 U/L 39-117 Alt (SGPT) 19 U/L 17-63 Ast (Sgot) 22 U/L 12-42 eGFR Non- 58.9 > 60 eGFR 75.7 > 60 78 CBC Auto Diff 02/28/2012 [facility] White Blood 5.9 CUMM 4.8- 10.[address] [place] [address] [phone] Red Cell Count 4.53 CUMM Low 4.6-6.2 Hemoglobin 13.5 g/dL Low 14.0-18.0 Hematocrit 40 % Low 42-52 Mean Corpuscular Volume 87 um3 80-94 Mean Corpuscular Hemoglob 30 pg 27-31 Mean Corpuscular HGB Cone 34 g/dL 32-36 Redcell Distribution WDTH 16 % High 10.5-15 Platelet Count 188 CUMM 150-450 Mean Platelet Volume 9.9 um3 7.4-10.4 Absolute Neutrophil Count 3.6 1.5-7.7 79 Laboratory test 02/28/2012 [facility] BNP Evaluatr 28 pg/mL 0 -[address] [place] [address] [phone] Manual 02/28/2012 [facility] Polysegmented 60 % 38-[address] [place] [address] [phone] Band Neutrophil 1 % 0-8 Lymphocyte 26 % 25-47 Monocyte 7 % 0-13 Eosinophil 6 % 0-6 Anisocytosis SLIGHT CBC Auto Diff 12/14/2011 [facility] White Blood 9.1 CUMM 4.8- 10.[address] [place] [address] [phone] Red Cell Count 5.08 CUMM 4.6-6.2 Hemoglobin 14.5 g/dL 14.0-18.0 Hematocrit 44 % 42-52 Mean Corpuscular Volume 87 um3 80-94 Mean Corpuscular Hemoglob 29 pg 27-31 Mean Corpuscular HGB Cone 33 g/dL 32-36 Redcell Distribution WDTH 15 % 10.5-15 Platelet Count 191 CUMM 150-450 Mean Platelet Volume 10.5 um3 High 7.4-10.4 Gran % 70.0 % 38-83 Lymph % 21.0 % Low 25-47 Mononuclear % 8.3 % 1-9 Eosinophil % 0.1 % 0-6 Basophil % 0.6 % 0-2 Abs Lymphs 1.9 1.0-4.8 Abs Mononuclear 0.8 0-0.8 Absolute Neutrophil Count 6.3 1.5-7.7 Abs Eosinophils 0 0-0.6 Abs Basophils 0.1 0-0.2 Winnie (Antinuclear 12/14/2011 [facility] Antinuclear AB NEGATIVE Negative Antibodies) [address] [place] [address] [phone] Laboratory test 12/14/2011 [facility] Erythrocyte Sed 5 MM/HR 0-40 finding [address] [place] [address] [phone] TSH 1.12 MIU/ML 0.34-5.60 CBC No Diff 07/24/2011 [facility] White Blood Count 5.4 CUMM 4.8-10.8 [address] [place] [address] [phone] Red Cell Count 4.62 CUMM 4.6-6.2 Hemoglobin 13.5 g/dL Low 14.0-18.0 Hematocrit 40 % Low 42-52 Mean Corpuscular Volume 86 um3 80-94 Mean Corpuscular Hemoglob 29 pg 27-31 Mean Corpuscular HGB Cone 34 g/dL 32-36 Redcell Distribution WDTH 16 % High 10.5-15 Platelet Count 194 CUMM 150-450 Mean Platelet Volume 9.1 um3 7.4-10.4 Lipid Profile 07/24/2011 [facility] Triglyceride 56 mg/dL 40- 200 (Trig/Chol/HDL) [address] [place] [address] [phone] Cholesterol 171 mg/dL Less Than 200 80 High Density Lipoprotein 61 mg/dL High 40-60 81 Cholesterol/HDL Ratio 2.80 AVERAGE 1-4.97 Low Density Lipoprotein 99 mg/dL Less Than 100 82 Comp Metabolic Panel 07/24/2011 [facility] Sodium 137 mmol/L 135-145 [address] [place] [address] [phone] Potassium 4.3 mmol/L 3.5-5.0 Chloride 103 mmol/L 101-111 Co2 (Carbon Dioxide) 28.0 mmol/L 22-32 Anion Gap 6.0 mmol/L 2-11 83 Glucose 88 mg/dL 70-100 BUN 22 mg/dL 6-24 Creatinine 1.5 mg/dL High 0.50-1.40 One Over Creatinine 0.66 BUN/Creatinine Ratio 14.7 8-20 Calcium 9.4 mg/dL 8.1-9.9 Total Protein 6.2 GM/DL 6.2-8.1 Albumin 4.1 GM/DL 3.2-5.2 Globulin 2.1 GM/DL 2-4 Albumin/Globulin Ratio 2.0 1-3 Bilirubin Total 0.7 mg/dL 0.4-1.5 84 Alkaline Phosphatase 36 U/L Low 39-117 Alt (SGPT) 18 U/L 17-63 Ast (Sgot) 20 U/L 12-42 eGFR Non- 45.6 > 60 eGFR 58.7 > 60 85 Lipid Panel - 07/24/2011 [facility] CPK (Creatine 59 U/L 0- [address] Kinase) [place] [address] [phone] Iron & Iron 05/16/2011 [facility] Iron Total 72 g/dL 45- 182 Binding Capacity [address] [place] [address] [phone] Unsaturated Iron Binding 346 g/dL Total Iron Binding Capacity 418 g/dL 250-450 % Iron Saturation 17 % 15-55 Laboratory test finding 05/16/2011 [facility] Ferritin 63 NG/ML 24-[address] [place] [address] [phone] Vitamin B12 438 pg/mL 180-914 CBC With Manual 05/16/2011 [facility] White Blood 5.1 CUMM 4.8-10.[address] [place] [address] [phone] Red Cell Count 4.68 CUMM 4.6-6.2 Hemoglobin 13.6 g/dL Low 14.0-18.0 Hematocrit 40 % Low 42-52 Mean Corpuscular Volume 86 um3 80-94 Mean Corpuscular Hemoglob 29 pg 27-31 Mean Corpuscular HGB Cone 34 g/dL 32-36 Redcell Distribution WDTH 16 % High 10.5-15 Platelet Count 196 CUMM 150-450 Mean Platelet Volume 9.2 um3 7.4-10.4 Polysegmented Neutrophil 55 % 38-83 Lymphocyte 29 % 25-47 Monocyte 7 % 0-13 Eosinophil 7 % High 0-6 Atypical Lymph 2 % 0-6 Absolute Neutrophil Count 2.8 Anisocytosis SLIGHT Hemogram 11/13/2010 [facility] White Blood Count 5.3 CUMM 4.8 -10.8 [address] [place] [address] [phone] Red Cell Count 4.50 CUMM Low 4.6-6.2 Hemoglobin 12.8 g/dL Low 14.0-18.0 Hematocrit 39 % Low 42-52 Mean Corpuscular Volume 87 um3 80-94 Mean Corpuscular Hemoglob 28 pg 27-31 Mean Corpuscular HGB Cone 33 g/dL 32-36 Redcell Distribution WDTH 15 % 10.5-15 Platelet Count 212 CUMM 150-450 Mean Platelet Volume 8.8 um3 7.4-10.4 Laboratory test 11/13/2010 [facility] Antibody Screen NEGATIVE finding [address] [place] [phone] Direct Antiglobulin Test NEGATIVE 86 Iron & Iron Binding 11/13/2010 [facility] Iron Total 63 g/dL 45-182 Capacity [address] [place] [address] [phone] Unsaturated Iron Binding 304 g/dL Total Iron Binding Capacity 367 g/dL 250-450 % Iron Saturation 17 % 15-55 Laboratory test finding 11/13/2010 [facility] Ferritin 56 NG/ML 24-336 [address] [place] [address] [phone] Carcino Embryonic Antigen 1.33 NG/ML 0-5 87 Erythropoietin 8.1 mIU/mL 2.6-18.5 88 Lipid Panel - 10/17/2010 [facility] CPK (Creatine 66 U/L 0- 200 J[address] [facility] Kinase) [place] [address] [phone] Comp Metabolic 10/17/2010 [facility] Sodium 138 135-145 Panel 101 [facility] mmol/[place] [address] [phone] Potassium 4.4 mmol/L 3.5-5.0 Chloride 107 mmol/L 101-111 Co2 (Carbon Dioxide) 26.0 mmol/L 22-32 Anion Gap 5.0 mmol/L 2-11 89 Glucose 90 mg/dL 70-100 BUN 21 mg/dL 6-24 Creatinine 1.40 mg/dL 0.50-1.40 One Over Creatinine 0.70 BUN/Creatinine Ratio 15.0 8-20 Calcium 9.1 mg/dL 8.1-9.9 Total Protein 5.9 GM/DL Low 6.2-8.1 Albumin 3.8 GM/DL 3.2-5.2 Globulin 2.1 GM/DL 2-4 Albumin/Globulin Ratio 1.8 1-3 Bilirubin Total 0.7 mg/dL 0.4-1.5 90 Alkaline Phosphatase 39 U/L 39-117 Alt (SGPT) 16 U/L Low 17-63 Ast (Sgot) 21 U/L 12-42 eGFR Non- 52.7 > 60 eGFR 63.7 > 60 91 Lipid Profile 10/17/2010 [facility] Triglyceride 31 mg/dL Low 40-200 (Trig/Chol/HDL) [address] [place] [address] [phone] Cholesterol 155 mg/dL Less Than 200 92 High Density Lipoprotein 58 mg/dL 40-60 93 Cholesterol/HDL Ratio 2.67 AVERAGE 1-4.97 Low Density Lipoprotein 91 mg/dL Less Than 100 94 Laboratory test finding 09/21/2010 [facility] Amylase 64 U/L 20-120 95 [address] [place] [address] [phone] Lipase 28 U/L 22-51 Troponin-I 0.01 NG/ML 0-0.06 96 Comp Metabolic Panel 09/21/2010 [facility] Sodium 136 mmol/L 135-145 [address] [place] [address] [phone] Potassium 4.7 mmol/L 3.5-5.0 Chloride 103 mmol/L 101-111 Co2 (Carbon Dioxide) 27.0 mmol/L 22-32 Anion Gap 6.0 mmol/L 2-11 97 Glucose 94 mg/dL 70-100 98 BUN 24 mg/dL 6-24 Creatinine 1.46 mg/dL High 0.50-1.40 One Over Creatinine 0.60 BUN/Creatinine Ratio 16.4 8-20 Calcium 9.3 mg/dL 8.1-9.9 Total Protein 7.6 GM/DL 6.2-8.1 Albumin 3.8 GM/DL 3.2-5.2 Globulin 3.8 GM/DL 2-4 Albumin/Globulin Ratio 1.0 1-3 Bilirubin Total 1.0 mg/dL 0.4-1.5 99 Alkaline Phosphatase 39 U/L 39-117 Alt (SGPT) 17 U/L 17-63 Ast (Sgot) 31 U/L 12-42 eGFR Non- 50.2 > 60 eGFR 60.7 > 60 100 Laboratory test 09/21/2010 [facility] BNP Evaluatr 123.0 High 0-[address] pg/[place] [address] [phone] CBC With 09/21/2010 [facility] White Blood 6.4 CUMM 4.8-10.8 Electronic Diff [address] [place] [address] [phone] Red Cell Count 4.77 CUMM 4.6-6.2 Hemoglobin 13.8 g/dL Low 14.0-18.0 Hematocrit 42 % 42-52 Mean Corpuscular Volume 87 um3 80-94 Mean Corpuscular Hemoglob 29 pg 27-31 Mean Corpuscular HGB Cone 33 g/dL 32-36 Redcell Distribution WDTH 15 % 10.5-15 Platelet Count 224 CUMM 150-450 Mean Platelet Volume 7.5 um3 7.4-10.4 Gran % 51.3 % 38-83 Lymph % 29.0 % 25-47 Mononuclear % 9.3 % High 1-9 Eosinophil % 9.4 % High 0-6 Basophil % 1.0 % 0-2 Abs Lymphs 1.9 1.0-4.8 Abs Mononuclear 0.6 0-0.8 Absolute Neutrophil Count 3.3 1.5-7.7 Abs Eosinophils 0.6 0-0.6 Abs Basophils 0.1 0-0.2 Laboratory test 06/23/2010 [facility] Ferritin 71 NG/ML 24- [address] [place] [address] [phone] CBC With Manual 06/23/2010 [facility] White Blood 5.8 CUMM 4.8-10.[address] [place] [address] [phone] Red Cell Count 4.51 CUMM Low 4.6-6.2 Hemoglobin 13.3 g/dL Low 14.0-18.0 Hematocrit 39 % Low 42-52 Mean Corpuscular Volume 87 um3 80-94 Mean Corpuscular Hemoglob 29 pg 27-31 Mean Corpuscular HGB Cone 34 g/dL 32-36 Redcell Distribution WDTH 15 % 10.5-15 Platelet Count 205 CUMM 150-450 Mean Platelet Volume 8.0 um3 7.4-10.4 Polysegmented Neutrophil 58 % 38-83 Band Neutrophil 1 % 0-8 Lymphocyte 27 % 25-47 Monocyte 7 % 0-13 Eosinophil 7 % High 0-6 Absolute Neutrophil Count 3.4 Anisocytosis SLIGHT CBC With 04/27/2010 [facility] White Blood 5.0 CUMM 4.8-10.8 Electronic Diff [address] [place] [address] [phone] Red Cell Count 4.49 CUMM Low 4.6-6.2 Hemoglobin 13.1 g/dL Low 14.0-18.0 Hematocrit 39 % Low 42-52 Mean Corpuscular Volume 87 um3 80-94 Mean Corpuscular Hemoglob 29 pg 27-31 Mean Corpuscular HGB Cone 33 g/dL 32-36 Redcell Distribution WDTH 15 % 10.5-15 Platelet Count 206 CUMM 150-450 Mean Platelet Volume 8.6 um3 7.4-10.4 Gran % 59.2 % 38-83 Lymph % 27.3 % 25-47 Mononuclear % 8.5 % 1-9 Eosinophil % 4.3 % 0-6 Basophil % 0.7 % 0-2 Abs Lymphs 1.4 1.0-4.8 Abs Mononuclear 0.4 0-0.8 Absolute Neutrophil Count 3.0 1.5-7.7 Abs Eosinophils 0.2 0-0.6 Abs Basophils 0 0-0.2 Liver Function 04/27/2010 [facility] Total Protein 6.3 GM/DL 6.2-8.[address] [place] [address] [phone] Albumin 3.9 GM/DL 3.2-5.2 Globulin 2.4 GM/DL 2-4 Albumin/Globulin Ratio 1.6 1-3 Bilirubin Total 0.5 mg/dL 0.4-1.5 101 Bilirubin Direct 0.1 mg/dL 0.1-0.5 Indirect Bilirubin 0.4 mg/dL 0.3-1.0 102 Alkaline Phosphatase 38 U/L Low 39-117 Alt (SGPT) 14 U/L Low 17-63 Ast (Sgot) 19 U/L 12-42 Iron & Iron Binding 04/27/2010 [facility] Iron Total 56 g/dL 45-[address] [place] [address] [phone] Unsaturated Iron Binding 317 g/dL Total Iron Binding Capacity 373 g/dL 250-450 % Iron Saturation 15 % 15-55 Laboratory test finding 04/27/2010 [facility] Ferritin 68 NG/ML 24-[address] [place] [address] [phone] Carcino Embryonic Antigen 1.41 NG/ML 0-5 103 Laboratory test 03/31/2010 [facility] Ferritin 71 NG/ML 24- [address] [place] [address] [phone] Iron & Iron Binding 03/31/2010 [facility] Iron Total 57 g/dL 45-[address] [place] [address] [phone] Unsaturated Iron Binding 341 g/dL Total Iron Binding Capacity 398 g/dL 250-450 % Iron Saturation 14 % Low 15-55 CBC With 03/31/2010 [facility] White Blood 5.4 CUMM 4.8-10.8 Electronic Diff [address] [place] [address] [phone] Red Cell Count 4.45 CUMM Low 4.6-6.2 Hemoglobin 12.9 g/dL Low 14.0-18.0 Hematocrit 39 % Low 42-52 Mean Corpuscular Volume 87 um3 80-94 Mean Corpuscular Hemoglob 29 pg 27-31 Mean Corpuscular HGB Cone 34 g/dL 32-36 Redcell Distribution WDTH 15 % 10.5-15 Platelet Count 207 CUMM 150-450 Mean Platelet Volume 8.4 um3 7.4-10.4 Gran % 51.0 % 38-83 Lymph % 34.0 % 25-47 Mononuclear % 7.7 % 1-9 Eosinophil % 6.6 % High 0-6 Basophil % 0.7 % 0-2 Abs Lymphs 1.9 1.0-4.8 Abs Mononuclear 0.4 0-0.8 Absolute Neutrophil Count 2.8 1.5-7.7 Abs Eosinophils 0.4 0-0.6 Abs Basophils 0 0-0.2 Laboratory test 01/18/2010 [facility] Clotest NEGATIVE finding [address] [place] [address] [phone] Surgical 01/17/2010 [facility] Surgical [address] Pathology --- <[place] [address] NOTE> [phone] Laboratory test 12/19/2009 [facility] Ferritin 77 NG/ML 24- 33 finding [address] [place] [address] [phone] Vitamin B12 478 pg/mL 180-914 CBC With Manual 12/19/2009 [facility] White Blood 5.7 CUMM 4.8-10.8 Diff [address] [place] [address] [phone] Red Cell Count 4.46 CUMM Low 4.6-6.2 Hemoglobin 13.1 g/dL Low 14.0-18.0 Hematocrit 39 % Low 42-52 Mean Corpuscular Volume 88 um3 80-94 Mean Corpuscular Hemoglob 29 pg 27-31 Mean Corpuscular HGB Cone 33 g/dL 32-36 Redcell Distribution WDTH 15 % 10.5-15 Platelet Count 207 CUMM 150-450 Mean Platelet Volume 8.7 um3 7.4-10.4 Polysegmented Neutrophil 50 % 38-83 Lymphocyte 37 % 25-47 Monocyte 8 % 0-13 Eosenophil 5 % 0-6 Absolute Neutrophil Count 2.8 RBC Morphology NORMAL Iron & Iron Binding 12/19/2009 [facility] Iron Total 49 g/dL 45-[address] [place] [address] [phone] Unsaturated Iron Binding 346 g/dL Total Iron Binding Capacity 395 g/dL 250-450 % Iron Saturation 12 % Low 15-55 Lipid Panel - 08/29/2009 [facility] CPK (Creatine 49 U/L 0- 200 JFM Kinase) [place] [address] [phone] Comp Metabolic 08/29/2009 [facility] Sodium 136 135-[address] mmol/[place] [address] [phone] Potassium 4.5 mmol/L 3.5-5.0 Chloride 104 mmol/L 101-111 Co2 (Carbon Dioxide) 28.0 mmol/L 22-32 Anion Gap 4.0 mmol/L 2-11 105 Glucose 83 mg/dL 70-100 106 BUN 21 mg/dL 6-24 Creatinine 1.40 mg/dL 0.50-1.40 One Over Creatinine 0.70 BUN/Creatinine Ratio 15.0 8-20 Calcium 9.4 mg/dL 8.1-9.9 107 Total Protein 6.6 GM/DL 6.2-8.1 Albumin 4.0 GM/DL 3.2-5.2 Globulin 2.6 GM/DL 2-4 Albumin/Globulin Ratio 1.5 1-3 Bilirubin Total 0.7 mg/dL 0.4-1.5 108 Alkaline Phosphatase 42 U/L 39-117 Alt (SGPT) 14 U/L Low 17-63 Ast (Sgot) 18 U/L 12-42 eGFR Non- 52.8 > 60 eGFR 63.9 > 60 109 Lipid Profile 08/29/2009 [facility] Triglyceride 58 mg/dL 40- 200 (Trig/Chol/HDL) [address] [place], [place] [id number] [phone] Cholesterol 173 mg/dL Less Than 200 110 High Density Lipoprotein 57 mg/dL 40-60 111 Cholesterol/HDL Ratio 3.04 AVERAGE 1-4.97 Low Density Lipoprotein 104 mg/dL High Less Than 100 112 Lipid Profile 05/23/2009 [facility] Triglyceride 59 mg/dL 40- 200 (Trig/Chol/HDL) [address] [place] [address] [phone] Cholesterol 157 mg/dL Less Than 200 113 High Density Lipoprotein 49 mg/dL 40-60 114 Cholesterol/HDL Ratio 3.20 AVERAGE 1-4.97 Low Density Lipoprotein 96 mg/dL Less Than 100 115 Basic Metabolic Panel 05/23/2009 [facility] Sodium 138 mmol/L 135-145 [address] [place] [address] [phone] Potassium 4.9 mmol/L 3.5-5.0 Chloride 107 mmol/L 101-111 Co2 (Carbon Dioxide) 27.0 mmol/L 22-32 Anion Gap 4.0 mmol/L 2-11 116 Glucose 83 mg/dL 70-100 117 BUN 20 mg/dL 6-24 Creatinine 1.10 mg/dL 0.50-1.40 One Over Creatinine 0.90 BUN/Creatinine Ratio 17.5 8-20 Calcium 9.0 mg/dL 8.1-9.9 118 eGFR Non- 69.7 > 60 eGFR 84.4 > 60 119 Laboratory test 05/23/2009 [facility] PSA Screening 0.0 NG/ML 0-[address] [place] [address] [phone] Lipid Panel - 08/17/2008 [facility] CPK (Creatine 84 U/L 0- [address] Kinase) [place] [address] [phone] Comp Metabolic 08/17/2008 [facility] Sodium 139 mmol/L 135- [address] [place] [address] [phone] Potassium 4.7 mmol/L 3.5-5.0 Chloride 105 mmol/L 101-111 Co2 (Carbon Dioxide) 28.0 mmol/L 22-32 Anion Gap 6.0 mmol/L 2-11 121 Glucose 80 mg/dL 70-100 122 BUN 20 mg/dL 6-24 Creatinine 1.20 mg/dL 0.50-1.40 One Over Creatinine 0.80 BUN/Creatinine Ratio 16.7 8-20 Calcium 9.4 mg/dL 8.1-9.9 123 Total Protein 6.5 GM/DL 6.2-8.1 Albumin 3.9 GM/DL 3.2-5.2 Globulin 2.6 GM/DL 2-4 Albumin/Globulin Ratio 1.5 1-3 Bilirubin Total 1.0 mg/dL 0.4-1.5 Alkaline Phosphatase 53 U/L 39-117 Alt (SGPT) 13 U/L Low 17-63 Ast (Sgot) 19 U/L 12-42 Lipid Profile 08/17/2008 [facility] Triglyceride 79 mg/dL 40- 200 (Trig/Chol/HDL) [address] [place] [address] [phone] Cholesterol 153 mg/dL Less Than 200 124 High Density Lipoprotein 52 mg/dL 40-60 125 Cholesterol/HDL Ratio 2.94 AVERAGE 1-4.97 Low Density Lipoprotein 85 mg/dL Less Than 100 126 Laboratory test 04/07/2008 [facility] PSA Screening 0.0 NG/ML 0-[address] [place] [address] [phone] Lipid Profile 04/07/2008 [facility] Triglyceride 81 mg/dL 40- 200 (Trig/Chol/HDL) [address] [place] [address] [phone] Cholesterol 171 mg/dL Less Than 200 128 High Density Lipoprotein 50 mg/dL 40-60 129 Cholesterol/HDL Ratio 3.42 AVERAGE 1-4.97 Low Density Lipoprotein 105 mg/dL High Less Than 100 130 Lipid Panel - 04/07/2008 [facility] CPK (Creatine 91 U/L 0- [address] Kinase) [place] [address] [phone] Comp Metabolic 04/07/2008 [facility] Sodium 141 135-[address] mmol/[place] [address] [phone] Potassium 4.5 mmol/L 3.5-5.0 Chloride 108 mmol/L 101-111 Co2 (Carbon Dioxide) 28.0 mmol/L 22-32 Anion Gap 5.0 mmol/L 2-11 131 Glucose 82 mg/dL 70-105 BUN 19 mg/dL 6-24 Creatinine 1.2 mg/dL 0.5-1.4 One Over Creatinine 0.83 BUN/Creatinine Ratio 15.8 8-20 Calcium 8.6 mg/dL 8.1-9.9 132 Total Protein 6.5 GM/DL 6.2-8.1 Albumin 3.8 GM/DL 3.2-5.2 Globulin 2.7 GM/DL 2-4 Albumin/Globulin Ratio 1.4 1-3 Bilirubin Total 1.2 mg/dL 0.4-1.5 Alkaline Phosphatase 58 U/L 39-117 Alt (SGPT) 16 U/L Low 17-63 Ast (Sgot) 21 U/L 12-42 1 Serum levels of PSA measured using the [employer] Upper[employer] DXI Hybritech immunoassay should not be interpreted as absolute evidence of the presence or absence of disease. The PSA value should be used in conjunction with other pertinent clinical diagnostic procedures. A PSA value in the range of 0.1 to 0.6 ng/ml is indeterminate if being used as an indicator of recurrent or residual disease. The values obtained with different assay methods or kits cannot be used interchangeably. 2 Because ethnic data is not always readily available, this report includes an eGFR for both -Americans and non- Americans. The National Kidney Disease Education Program (NKDEP) does not endorse the use of the MDRD equation for patients that are not between the ages of 18 and 70, are , have extremes of body size, muscle mass, or nutritional status, or are non- or non-. According to the National Kidney Foundation, irrespective of diagnosis, the stage of the disease is based on the level of kidney function: Stage Description GFR(mL/min/1.73 m(2)) 1 Kidney damage with normal or decreased GFR 90 2 Kidney damage with mild decrease in GFR 60-89 3 Moderate decrease in GFR 30-59 4 Severe decrease in GFR 15-29 5 Kidney failure <15 (or dialysis) 3 Desirable: <150 Borderline High: 150-199 High: 200-499 Very High: >500 4 Desirable: <200 Borderline High: 200-239 High: >239 5 Low: <40 Desirable: 40-60 High: >60 6 Desirable: <100 Near Optimal: 100-129 Borderline High: 130-159 High: 160-189 Very High: >189 7 FASTING 10 HOUR 8 Serum levels of PSA measured using the [employer] Nfocus Neuromed[employer] DXI Hybritech immunoassay should not be interpreted as absolute evidence of the presence or absence of disease. The PSA value should be used in conjunction with other pertinent clinical diagnostic procedures. The values obtained with different assay methods or kits cannot be used interchangeably. 9 Because ethnic data is not always readily available, this report includes an eGFR for both -Americans and non- Americans. The National Kidney Disease Education Program (NKDEP) does not endorse the use of the MDRD equation for patients that are not between the ages of 18 and 70, are , have extremes of body size, muscle mass, or nutritional status, or are non- or non-. According to the National Kidney Foundation, irrespective of diagnosis, the stage of the disease is based on the level of kidney function: Stage Description GFR(mL/min/1.73 m(2)) 1 Kidney damage with normal or decreased GFR 90 2 Kidney damage with mild decrease in GFR 60-89 3 Moderate decrease in GFR 30-59 4 Severe decrease in GFR 15-29 5 Kidney failure <15 (or dialysis) 10 Desirable: <150 Borderline High: 150-199 High: 200-499 Very High: >500 11 Desirable: <200 Borderline High: 200-239 High: >239 12 Low: <40 Desirable: 40-60 High: >60 13 Desirable: <100 Near Optimal: 100-129 Borderline High: 130-159 High: 160-189 Very High: >189 14 Because ethnic data is not always readily available, this report includes an eGFR for both -Americans and non- Americans. The National Kidney Disease Education Program (NKDEP) does not endorse the use of the MDRD equation for patients that are not between the ages of 18 and 70, are , have extremes of body size, muscle mass, or nutritional status, or are non- or non-. According to the National Kidney Foundation, irrespective of diagnosis, the stage of the disease is based on the level of kidney function: Stage Description GFR(mL/min/1.73 m(2)) 1 Kidney damage with normal or decreased GFR 90 2 Kidney damage with mild decrease in GFR 60-89 3 Moderate decrease in GFR 30-59 4 Severe decrease in GFR 15-29 5 Kidney failure <15 (or dialysis) 15 >100 to <200 pg/mL: likely compensated congestive heart failure (CHF) 200 to 400 pg/mL: likely moderate CHF >400 pg/mL: likely moderate to severe CHF 16 Serum levels of PSA measured using the [employer]focus Neuromedical DXI Hybritech immunoassay should not be interpreted as absolute evidence of the presence or absence of disease. The PSA value should be used in conjunction with other pertinent clinical diagnostic procedures. A PSA value in the range of 0.1 to 0.6 ng/ml is indeterminate if being used as an indicator of recurrent or residual disease. The values obtained with different assay methods or kits cannot be used interchangeably. 17 Because ethnic data is not always readily available, this report includes an eGFR for both -Americans and non- Americans. The National Kidney Disease Education Program (NKDEP) does not endorse the use of the MDRD equation for patients that are not between the ages of 18 and 70, are , have extremes of body size, muscle mass, or nutritional status, or are non- or non-. According to the National Kidney Foundation, irrespective of diagnosis, the stage of the disease is based on the level of kidney function: Stage Description GFR(mL/min/1.73 m(2)) 1 Kidney damage with normal or decreased GFR 90 2 Kidney damage with mild decrease in GFR 60-89 3 Moderate decrease in GFR 30-59 4 Severe decrease in GFR 15-29 5 Kidney failure <15 (or dialysis) 18 Desirable: <150 Borderline High: 150-199 High: 200-499 Very High: >500 19 Desirable: <200 Borderline High: 200-239 High: >239 20 Low: <40 Desirable: 40-60 High: >60 21 Desirable: <100 Near Optimal: 100-129 Borderline High: 130-159 High: 160-189 Very High: >189 22 Test Performed by: [address] [id number] 23 FASTING 10 HOUR 24 Serum levels of PSA measured using the [employer] N[employer] Neuromedical DXI Hybritech immunoassay should not be interpreted as absolute evidence of the presence or absence of disease. The PSA value should be used in conjunction with other pertinent clinical diagnostic procedures. A PSA value in the range of 0.1 to 0.6 ng/ml is indeterminate if being used as an indicator of recurrent or residual disease. The values obtained with different assay methods or kits cannot be used interchangeably. 25 Because ethnic data is not always readily available, this report includes an eGFR for both -Americans and non- Americans. The National Kidney Disease Education Program (NKDEP) does not endorse the use of the MDRD equation for patients that are not between the ages of 18 and 70, are , have extremes of body size, muscle mass, or nutritional status, or are non- or non-. According to the National Kidney Foundation, irrespective of diagnosis, the stage of the disease is based on the level of kidney function: Stage Description GFR(mL/min/1.73 m(2)) 1 Kidney damage with normal or decreased GFR 90 2 Kidney damage with mild decrease in GFR 60-89 3 Moderate decrease in GFR 30-59 4 Severe decrease in GFR 15-29 5 Kidney failure <15 (or dialysis) 26 Desirable <150 Borderline high 150-199 High 200-499 Very High >500 27 Desirable <200 Borderline high 200-239 High >239 28 Low <40 Desirable: 40-60 High: >60 29 Desirable: <100 mg/dL Near Optimal: 100-129 mg/dL Borderline High: 130-159 mg/dL High: 160-189 mg/dL Very High: >189 mg/dL 30 Director Of Software Engineering: [id number] Phoebe Noland 31 [facility] Severe Sepsis and Septic Shock Management Bundle Measure requires all lactic acids initially measuring >2.0 mmol/L be repeated. 32 >100 to <200 pg/mL: likely compensated congestive heart failure (CHF) 200 to 400 pg/mL: likely moderate CHF >400 pg/mL: likely moderate to severe CHF 33 Unable to report test result due to hemolysis. 34 Unable to report test result due to hemolysis. 35 Because ethnic data is not always readily available, this report includes an eGFR for both -Americans and non- Americans. The National Kidney Disease Education Program (NKDEP) does not endorse the use of the MDRD equation for patients that are not between the ages of 18 and 70, are , have extremes of body size, muscle mass, or nutritional status, or are non- or non-. According to the National Kidney Foundation, irrespective of diagnosis, the stage of the disease is based on the level of kidney function: Stage Description GFR(mL/min/1.73 m(2)) 1 Kidney damage with normal or decreased GFR 90 2 Kidney damage with mild decrease in GFR 60-89 3 Moderate decrease in GFR 30-59 4 Severe decrease in GFR 15-29 5 Kidney failure <15 (or dialysis) 36 99th percentile=0.04 ng/mL Troponin results at [facility] and [facility] are not interchangeable. 37 SEE RESULT BELOW Name: STRONGFABIANO MALONEY Genia : [address]: Aurelio Davidson GREEN HOUSE MANAGER Acct: [id number] Unit: [id number] AGE: 81 Location: [facility] Re12/07/16 SEX: M Status: REG REF SPEC: [id number] ZULEIKA: 12/07/[address] [facility] [address]: Aurelio Davidson NP REQ: [id number] RECD: 12/07/16 STATUS: COMP _ SOURCE: DAVIDGenia [facility]: ORDERED: Flu A B Request COMMENTS: [id number] Procedure Result Reported Site Rapid Influenza A B Request Final 12/07/16- 2054 ML Specimen received for Influenza A/B Molecular testing * ML - MAIN LAB ([facility]) . END OF REPORT * ML=Testing performed at Main Lab DEPARTMENT OF PATHOLOGY, [address] [place] [address] Levy Tamez M.D. Director [facility] # [id number] 38 Because ethnic data is not always readily available, this report includes an eGFR for both -Americans and non- Americans. The National Kidney Disease Education Program (NKDEP) does not endorse the use of the MDRD equation for patients that are not between the ages of 18 and 70, are , have extremes of body size, muscle mass, or nutritional status, or are non- or non-. According to the National Kidney Foundation, irrespective of diagnosis, the stage of the disease is based on the level of kidney function: Stage Description GFR(mL/min/1.73 m(2)) 1 Kidney damage with normal or decreased GFR 90 2 Kidney damage with mild decrease in GFR 60-89 3 Moderate decrease in GFR 30-59 4 Severe decrease in GFR 15-29 5 Kidney failure <15 (or dialysis) 39 [id number] 40 Because ethnic data is not always readily available, this report includes an eGFR for both -Americans and non- Americans. The National Kidney Disease Education Program (NKDEP) does not endorse the use of the MDRD equation for patients that are not between the ages of 18 and 70, are , have extremes of body size, muscle mass, or nutritional status, or are non- or non-. According to the National Kidney Foundation, irrespective of diagnosis, the stage of the disease is based on the level of kidney function: Stage Description GFR(mL/min/1.73 m(2)) 1 Kidney damage with normal or decreased GFR 90 2 Kidney damage with mild decrease in GFR 60-89 3 Moderate decrease in GFR 30-59 4 Severe decrease in GFR 15-29 5 Kidney failure <15 (or dialysis) 41 Serum levels of PSA measured using the [employer] Neuromed[employer] DXI Hybritech immunoassay should not be interpreted as absolute evidence of the presence or absence of disease. The PSA value should be used in conjunction with other pertinent clinical diagnostic procedures. A PSA value in the range of 0.1 to 0.6 ng/ml is indeterminate if being used as an indicator of recurrent or residual disease. The values obtained with different assay methods or kits cannot be used interchangeably. 42 Desirable <150 Borderline high 150-199 High 200-499 Very High >500 43 Desirable <200 Borderline high 200-239 High >239 44 Low <40 Desirable: 40-60 High: >60 45 Desirable: <100 mg/dL Near Optimal: 100-129 mg/dL Borderline High: 130-159 mg/dL High: 160-189 mg/dL Very High: >189 mg/dL 46 FASTING 10 HOUR 47 ADDITIONAL INFORMATION Testing performed by [facility]. 48 ADDITIONAL INFORMATION Testing performed by Liquid Chromatography-Tandem Mass Spectrometry (LC-MS/MS). Test Performed by: [place] [address] Cattle Sorter: Murtaza Briseno II, M.D., Ph.D. 49 Desirable <150 Borderline high 150-199 High 200-499 Very High >500 50 Desirable <200 Borderline high 200-239 High >239 51 Low <40 Desirable: 40-60 High: >60 52 Desirable: <100 mg/dL Near Optimal: 100-129 mg/dL Borderline High: 130-159 mg/dL High: 160-189 mg/dL Very High: >189 mg/dL 53 ADDITIONAL INFORMATION Testing performed by [facility]. 54 ADDITIONAL INFORMATION Testing performed by Liquid Chromatography-Tandem Mass Spectrometry (LC-MS/MS). Test Performed by: [place] [address] Cattle Sorter: Murtaza Briseno II, M.D., Ph.D. 55 Serum levels of PSA measured using the [employer] Nfocus Neuromedical DXI Hybritech immunoassay should not be interpreted as absolute evidence of the presence or absence of disease. The PSA value should be used in conjunction with other pertinent clinical diagnostic procedures. A PSA value in the range of 0.1 to 0.6 ng/ml is indeterminate if being used as an indicator of recurrent or residual disease. The values obtained with different assay methods or kits cannot be used interchangeably. 56 ADDITIONAL INFORMATION Testing performed by [facility]. 57 ADDITIONAL INFORMATION Testing performed by Liquid Chromatography-Tandem Mass Spectrometry (LC-MS/MS). Test Performed by: [place] [address] Cattle Sorter: Stew Coe M.D. 58 Desirable <100 Near Optimal 100-129 Borderline high 130-159 High 160-189 Very High >189 59 Desirable <200 Borderline high 200-239 High >239 60 Low <40 Desirable: 40-60 High: >60 61 FASTING 62 FASTING 63 Desirable <150 Borderline high 150-199 High 200-499 Very High >500 64 Desirable <200 Borderline high 200-239 High >239 65 Low <40 Desirable: 40-60 High: >60 66 Desirable <100 Near Optimal 100-129 Borderline high 130-159 High 160-189 Very High >189 67 Desirable <150 Borderline high 150-199 High 200-499 Very High >500 68 Desirable <200 Borderline high 200-239 High >239 69 Low <40 Desirable: 40-60 High: >60 70 Desirable <100 Near Optimal 100-129 Borderline high 130-159 High 160-189 Very High >189 71 Because ethnic data is not always readily available, this report includes an eGFR for both -Americans and non- Americans. The National Kidney Disease Education Program (NKDEP) does not endorse the use of the MDRD equation for patients that are not between the ages of 18 and 70, are , have extremes of body size, muscle mass, or nutritional status, or are non- or non-. According to the National Kidney Foundation, irrespective of diagnosis, the stage of the disease is based on the level of kidney function: Stage Description GFR(mL/min/1.73 m(2)) 1 Kidney damage with normal or decreased GFR 90 2 Kidney damage with mild decrease in GFR 60-89 3 Moderate decrease in GFR 30-59 4 Severe decrease in GFR 15-29 5 Kidney failure <15 (or dialysis) 72 HDL Interpretation: Undesirable: High Risk: Less than 40 MG/DL Desirable: Low Risk: Greater than 60 MG/DL 73 LDL Interpretation: Low Risk Optimal Level: LDL Less than 100 MG/DL Near or Above Optimal: LDL 100-129 MG/DL Borderline High Risk: LDL 130-159 MG/DL High Risk: LDL 160-189 MG/DL Very High Risk: LDL Greater than 189 MG/DL 74 Because ethnic data is not always readily available, this report includes an eGFR for both -Americans and non- Americans. The National Kidney Disease Education Program (NKDEP) does not endorse the use of the MDRD equation for patients that are not between the ages of 18 and 70, are , have extremes of body size, muscle mass, or nutritional status, or are non- or non-. According to the National Kidney Foundation, irrespective of diagnosis, the stage of the disease is based on the level of kidney function: Stage Description GFR(mL/min/1.73 m(2)) 1 Kidney damage with normal or decreased GFR 90 2 Kidney damage with mild decrease in GFR 60-89 3 Moderate decrease in GFR 30-59 4 Severe decrease in GFR 15-29 5 Kidney failure <15 (or dialysis) 75 Fasting 76 Anion gap measurement may be of limited value in the presence of any alkalosis, especially in a combined acid base disorder. . 77 A metabolite of Naproxen, O-desmethylnaproxen, has been shown to interfere with the Jendrassik-Medford method for measuring total bilirubin. Samples from patients who have taken Naproxen have shown spurious elevation in total bilirubin levels. 78 Because ethnic data is not always readily available, this report includes an eGFR for both -Americans and non- Americans. The National Kidney Disease Education Program (NKDEP) does not endorse the use of the MDRD equation for patients that are not between the ages of 18 and 70, are , have extremes of body size, muscle mass, or nutritional status, or are non- or non-. According to the National Kidney Foundation, irrespective of diagnosis, the stage of the disease is based on the level of kidney function: Stage Description GFR(mL/min/1.73 m(2)) 1 Kidney damage with normal or decreased GFR 90 2 Kidney damage with mild decrease in GFR 60-89 3 Moderate decrease in GFR 30-59 4 Severe decrease in GFR 15-29 5 Kidney failure <15 (or dialysis) 79 Imm. NE 1 80 CHOLESTEROL INTERPRETATION: Desirable: Less than 200 MG/DL Borderline-High Risk: 200-239 MG/DL High-Risk: 240 MG/DL and over 81 HDL INTERPRETATION: Undesirable: High Risk: Less than 40 MG/DL Desirable: Low Risk: Greater than 60 MG/DL 82 LDL INTERPRETATION: Low Risk Optimal Level: LDL Less than 100 MG/DL Near or Above Optimal: LDL 100-129 MG/DL Borderline High Risk: LDL 130-159 MG/DL High Risk: LDL 160-189 MG/DL Very High Risk: LDL Greater than 189 MG/DL 83 Anion gap measurement may be of limited value in the presence of any alkalosis, especially in a combined acid base disorder. . 84 A metabolite of Naproxen, O-desmethylnaproxen, has been shown to interfere with the Jendrassik-Stephanie method for measuring total bilirubin. Samples from patients who have taken Naproxen have shown spurious elevation in total bilirubin levels. 85 Because ethnic data is not always readily available, this report includes an eGFR for both -Americans and non- Americans. The National Kidney Disease Education Program (NKDEP) does not endorse the use of the MDRD equation for patients that are not between the ages of 18 and 70, are , have extremes of body size, muscle mass, or nutritional status, or are non- or non-. According to the National Kidney Foundation, irrespective of diagnosis, the stage of the disease is based on the level of kidney function: Stage Description GFR(mL/min/1.73 m(2)) 1 Kidney damage with normal or decreased GFR 90 2 Kidney damage with mild decrease in GFR 60-89 3 Moderate decrease in GFR 30-59 4 Severe decrease in GFR 15-29 5 Kidney failure <15 (or dialysis) 86 DIRECT LENNOX INTERPRETATION: RESULT: INTERPRETATION: WEAKLY POSITIVE POSITIVE 1+ POSITIVE 2+ POSITIVE 3+ POSITIVE 4+ POSITIVE 87 SMOKING MAY INCREASE VALUES SERUM LEVELS OF CEA MEASURED USING THE [employer] ACCESS IMMUNOASSAY SYSTEM SHOULD NOT BE INTERPRETED ABSOLUTE EVIDENCE OF THE PRESENCE OR ABSENCE OF DISEASE. THE CEA VALUE SHOULD BE USED IN CONJUNCTION WITH OTHER PERTINENT CLINICAL DIAGNOSTIC PROCEDURES. 88 Test Performed by: [facility] D[facility] of Lab Med and Pathology [address] [place] [id number] Cattle Sorter: Malcolm Ocampo III, M.D. 89 Anion gap measurement may be of limited value in the presence of any alkalosis, especially in a combined acid base disorder. . 90 A metabolite of Naproxen, O-desmethylnaproxen, has been shown to interfere with the Jendrassik-Stephanie method for measuring total bilirubin. Samples from patients who have taken Naproxen have shown spurious elevation in total bilirubin levels. 91 Because ethnic data is not always readily available, this report includes an eGFR for both -Americans and non- Americans. The National Kidney Disease Education Program (NKDEP) does not endorse the use of the MDRD equation for patients that are not between the ages of 18 and 70, are , have extremes of body size, muscle mass, or nutritional status, or are non- or non-. According to the National Kidney Foundation, irrespective of diagnosis, the stage of the disease is based on the level of kidney function: Stage Description GFR(mL/min/1.73 m(2)) 1 Kidney damage with normal or decreased GFR 90 2 Kidney damage with mild decrease in GFR 60-89 3 Moderate decrease in GFR 30-59 4 Severe decrease in GFR 15-29 5 Kidney failure <15 (or dialysis) 92 CHOLESTEROL INTERPRETATION: Desirable: Less than 200 MG/DL Borderline-High Risk: 200-239 MG/DL High-Risk: 240 MG/DL and over 93 HDL INTERPRETATION: Undesirable: High Risk: Less than 40 MG/DL Desirable: Low Risk: Greater than 60 MG/DL 94 LDL INTERPRETATION: Low Risk Optimal Level: LDL Less than 100 MG/DL Near or Above Optimal: LDL 100-129 MG/DL Borderline High Risk: LDL 130-159 MG/DL High Risk: LDL 160-189 MG/DL Very High Risk: LDL Greater than 189 MG/DL 95 PLEASE NOTE NEW REFERENCE RANGE. 96 New Reference Range and Interpretation effective 07/10/2002 TnI (ng/ml) INTERPRETATION Less Than 0.06 ng/mL NOT SUPPORTIVE OF DIAGNOSIS OF [place] 0.06 - 0.50 ng/ml INDETERMINATE: SUGGEST SERIAL STUDIES IF CLINICALLY INDICATED. Greater than 0.5 ng/mL CONSISTENT WITH DIAGNOSIS OF [place] . 97 Anion gap measurement may be of limited value in the presence of any alkalosis, especially in a combined acid base disorder. . 98 Note change in reference range as of 05/27/08. The change was based on recommendations from the [place] [employer]. 99 A metabolite of Naproxen, O-desmethylnaproxen, has been shown to interfere with the Jendrassik-Stephanie method for measuring total bilirubin. Samples from patients who have taken Naproxen have shown spurious elevation in total bilirubin levels. 100 Because ethnic data is not always readily available, this report includes an eGFR for both -Americans and non- Americans. The National Kidney Disease Education Program (NKDEP) does not endorse the use of the MDRD equation for patients that are not between the ages of 18 and 70, are , have extremes of body size, muscle mass, or nutritional status, or are non- or non-. According to the National Kidney Foundation, irrespective of diagnosis, the stage of the disease is based on the level of kidney function: Stage Description GFR(mL/min/1.73 m(2)) 1 Kidney damage with normal or decreased GFR 90 2 Kidney damage with mild decrease in GFR 60-89 3 Moderate decrease in GFR 30-59 4 Severe decrease in GFR 15-29 5 Kidney failure <15 (or dialysis) 101 A metabolite of Naproxen, O-desmethylnaproxen, has been shown to interfere with the Jendrassik-Stephanie method for measuring total bilirubin. Samples from patients who have taken Naproxen have shown spurious elevation in total bilirubin levels. 102 Please note updated reference range, effective 04/27/10 103 SMOKING MAY INCREASE VALUES SERUM LEVELS OF CEA MEASURED USING THE [employer] ACCESS IMMUNOASSAY SYSTEM SHOULD NOT BE INTERPRETED ABSOLUTE EVIDENCE OF THE PRESENCE OR ABSENCE OF DISEASE. THE CEA VALUE SHOULD BE USED IN CONJUNCTION WITH OTHER PERTINENT CLINICAL DIAGNOSTIC PROCEDURES. 104 ----- RUN DATE: 01/19/10 [facility] NMI LIVE PAGE 1 RUN TIME: 1531 Specimen Inquiry RUN USER: INTERFACE -- Name: FABIANO STRONG Status: REG REF Re01/17/10 Age/Sex: 74/M Unit#: [id number] Location: [address] [place] [address]. : 37 -- Specimen: [id number] Spec Date: 01/17/[address]: Zack hinojosa MD Spec Type: SURGICAL P Received: 01/18/10-1313 Copies to: Jameson sawant MD SPECIMEN DUODENAL BIOPSY HISTORY PRE-OP DIAGNOSIS: Iron deficiency anemia; rule out enteropathy POST-OP DIAGNOSIS: Gastric anatomic anomaly GROSS DESCRIPTION The specimen is received in formalin labelled Fabiano Strong, Duodenal Biopsy, and consists of multiple ribeiro, soft tissue fragments measuring 0.4 x 0.3 x 0.1 cm. in aggregate. Submitted entirely, one cassette. DIAGNOSIS Small bowel, duodenum, biopsy: Small bowel mucosa with normal villous architecture and no significant pathologic abnormality. Signed Electronically by: LEVY TAMEZ MD 01/19/10 1529 -- -- DEPARTMENT OF PATHOLOGY, [address] [place] [address] [facility] Permit #[id number] Levy Tamez M.D. Director Sanchez Arteaga M.D. Insurance Claim Auditor Dir mary -- 105 Anion gap measurement may be of limited value in the presence of any alkalosis, especially in a combined acid base disorder. . 106 Note change in reference range as of 05/27/08. The change was based on recommendations from the [place] [employer]. 107 Please note change in reference range effective 08 . 108 A metabolite of Naproxen, O-desmethylnaproxen, has been shown to interfere with the Joseph-Medford method for measuring total bilirubin. Samples from patients who have taken Naproxen have shown spurious elevation in total bilirubin levels. 109 Because ethnic data is not always readily available, this report includes an eGFR for both -Americans and non- Americans. The National Kidney Disease Education Program (NKDEP) does not endorse the use of the MDRD equation for patients that are not between the ages of 18 and 70, are , have extremes of body size, muscle mass, or nutritional status, or are non- or non-. According to the National Kidney Foundation, irrespective of diagnosis, the stage of the disease is based on the level of kidney function: Stage Description GFR(mL/min/1.73 m(2)) 1 Kidney damage with normal or decreased GFR 90 2 Kidney damage with mild decrease in GFR 60-89 3 Moderate decrease in GFR 30-59 4 Severe decrease in GFR 15-29 5 Kidney failure <15 (or dialysis) 110 CHOLESTEROL INTERPRETATION: Desirable: Less than 200 MG/DL Borderline-High Risk: 200-239 MG/DL High-Risk: 240 MG/DL and over 111 HDL INTERPRETATION: Undesirable: High Risk: Less than 40 MG/DL Desirable: Low Risk: Greater than 60 MG/DL 112 LDL INTERPRETATION: Low Risk Optimal Level: LDL Less than 100 MG/DL Near or Above Optimal: LDL 100-129 MG/DL Borderline High Risk: LDL 130-159 MG/DL High Risk: LDL 160-189 MG/DL Very High Risk: LDL Greater than 189 MG/DL 113 CHOLESTEROL INTERPRETATION: Desirable: Less than 200 MG/DL Borderline-High Risk: 200-239 MG/DL High-Risk: 240 MG/DL and over 114 HDL INTERPRETATION: Undesirable: High Risk: Less than 40 MG/DL Desirable: Low Risk: Greater than 60 MG/DL 115 LDL INTERPRETATION: Low Risk Optimal Level: LDL Less than 100 MG/DL Near or Above Optimal: LDL 100-129 MG/DL Borderline High Risk: LDL 130-159 MG/DL High Risk: LDL 160-189 MG/DL Very High Risk: LDL Greater than 189 MG/DL 116 Anion gap measurement may be of limited value in the presence of any alkalosis, especially in a combined acid base disorder. . 117 Note change in reference range as of 05/27/08. The change was based on recommendations from the [place] [employer]. 118 Please note change in reference range effective 08 . 119 Because ethnic data is not always readily available, this report includes an eGFR for both -Americans and non- Americans. The National Kidney Disease Education Program (NKDEP) does not endorse the use of the MDRD equation for patients that are not between the ages of 18 and 70, are , have extremes of body size, muscle mass, or nutritional status, or are non- or non-. According to the National Kidney Foundation, irrespective of diagnosis, the stage of the disease is based on the level of kidney function: Stage Description GFR(mL/min/1.73 m(2)) 1 Kidney damage with normal or decreased GFR 90 2 Kidney damage with mild decrease in GFR 60-89 3 Moderate decrease in GFR 30-59 4 Severe decrease in GFR 15-29 5 Kidney failure <15 (or dialysis) 120 * SERUM LEVELS OF PSA MEASURED USING THE [employer] ACCESS HYBRITECH IMMUNOASSAY SHOULD NOT BE INTERPRETED ABSOLUTE EVIDENCE OF THE PRESENCE OR ABSENCE OF DISEASE. THE PSA VALUE SHOULD BE USED IN CONJUNCTION WITH OTHER PERTINENT CLINICAL DIAGNOSTIC PROCEDURES. A PSA value in the range of 0.1 to 0.6 ng/ml is indeterminate if being used as an indicator of recurrent or residual disease. . 121 Anion gap measurement may be of limited value in the presence of any alkalosis, especially in a combined acid base disorder. . 122 Note change in reference range as of 05/27/08. The change was based on recommendations from the [place] [employer]. 123 Please note change in reference range effective 08 . 124 CHOLESTEROL INTERPRETATION: Desirable: Less than 200 MG/DL Borderline-High Risk: 200-239 MG/DL High-Risk: 240 MG/DL and over 125 HDL INTERPRETATION: Undesirable: High Risk: Less than 40 MG/DL Desirable: Low Risk: Greater than 60 MG/DL 126 LDL INTERPRETATION: Low Risk Optimal Level: LDL Less than 100 MG/DL Near or Above Optimal: LDL 100-129 MG/DL Borderline High Risk: LDL 130-159 MG/DL High Risk: LDL 160-189 MG/DL Very High Risk: LDL Greater than 189 MG/DL 127 * SERUM LEVELS OF PSA MEASURED USING THE [employer] ACCESS HYBRITECH IMMUNOASSAY SHOULD NOT BE INTERPRETED ABSOLUTE EVIDENCE OF THE PRESENCE OR ABSENCE OF DISEASE. THE PSA VALUE SHOULD BE USED IN CONJUNCTION WITH OTHER PERTINENT CLINICAL DIAGNOSTIC PROCEDURES. A PSA value in the range of 0.1 to 0.6 ng/ml is indeterminate if being used as an indicator of recurrent or residual disease. . 128 CHOLESTEROL INTERPRETATION: Desirable: Less than 200 MG/DL Borderline-High Risk: 200-239 MG/DL High-Risk: 240 MG/DL and over 129 HDL INTERPRETATION: Undesirable: High Risk: Less than 40 MG/DL Desirable: Low Risk: Greater than 60 MG/DL 130 LDL INTERPRETATION: Low Risk Optimal Level: LDL Less than 100 MG/DL Near or Above Optimal: LDL 100-129 MG/DL Borderline High Risk: LDL 130-159 MG/DL High Risk: LDL 160-189 MG/DL Very High Risk: LDL Greater than 189 MG/DL 131 Anion gap measurement may be of limited value in the presence of any alkalosis, especially in a combined acid base disorder. . 132 Please note change in reference range effective 08 . Procedures Date Code Description Status 11/26/2017 52465 ECHO Transthoracic, Real-Time 2D With Doppler And Completed Color Flow 11/26/2017 12584 ECHO Transthoracic, Real-Time 2D With Doppler And Completed Color Flow 03/22/2017 28494 Holter Monitor Review (24 hr)dr review & interp only Completed 03/18/2017 02628 ECG Monitor/Recording W/Visual Superimposition Completed Scanning 12/12/2016 90803 EKG Tracing & Interpretation Completed 12/07/2016 01030 EKG Tracing & Interpretation Completed 08/31/2015 44829 Diffusing Capacity Completed 08/31/2015 06750 Plethysmography Determination Lung Volumes & Per Completed Airway Resist 08/31/2015 72750 Pulmonary Function><Bronchodil Completed 06/24/2015 49686 EKG Tracing & Interpretation Completed 04/01/2015 [id number] Diabetic Retinal Eye Exam Completed 03/28/2015 25863 Fibroptic Laryngoscopy Completed 02/27/2013 19274 Inject/Drain Joint/Bursa Major W/O US Completed 01/21/2013 11499 ECHO Transthorasic Realtime 2D W Doppler & Color Flow Completed Hosp 10/21/2012 54341 Inject/Drain Joint/Bursa Major W/O US Completed 07/10/2012 99433 Xray Knee 3 Views Completed 07/10/2012 12352 Rad Exam; Knee, Ap&L Completed 07/10/201258077 Inject/Drain Joint/Bursa Major W/O US Completed 10/15/2011 27477 Rad Shoulder Comp, Min. 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 Encounter for immunization Office Visit 04/11/2018 11:55a [facility] Jameson Ibanez L03.115 Cellulitis of Wanda Reyes M.D.,FACP right lower limb Suite R 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 Office Visit 12/10/2017 2:40p [facility] Jameson Ibanez R60.1 Generalized edema Wanda Reyes M.D.,FACP Ccmob J30.9 Allergic rhinitis, unspecified Office Visit 10/08/2017 8:30a [facility] Jameson Ibanez I25.10 [facility]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 ang pctrs I50.20 Unspecified systolic (congestive) heart failure Z23 Encounter for immunization Office Visit 04/02/2017 9:10a [facility] Willa Ibanez Z00.01 Encounter for Wanda Reyes M.D.,[facility] w abnormal findings J32.9 Chronic sinusitis, unspecified 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 R91.8 Other nonspecific abnormal finding of lung field Office Visit 03/19/2017 2:30p [facility] Jameson Ibanez R42 Dizziness and Medicine - Cristian Reyes M.D.,FACP giddiness Office Visit 02/28/2017 3:00p [facility] Simon Merritt, L82.1 Other seborrheic MD keratosis L71.8 Other rosacea L30.9 Dermatitis, unspecified Office Visit 12/12/2016 8:20a [facility] Santana Miller, R07.9 Chest pain, Of [employer] [facility] [place], FAC, unspecified FSCAI R94.31 Abnormal electrocardiogram [ECG] [EKG] Office Visit 12/11/2016 [facility] Jameson Ibanez R94.31 Abnormal 9:50a Wanda Reyes, electrocardiogram Cristian Martinez,FACP [ECG] [EKG] R10.13 Epigastric pain J32.9 Chronic sinusitis, unspecified R42 Dizziness and giddiness Office Visit 12/07/2016 11:00a [facility] Aurelio Davidson, R10.13 Epigastric pain Medicine - Suite [employer] R I25.10 [facility] heart disease of [place] coronary artery w/o ang pctrs J06.9 Acute upper respiratory infection, unspecified R94.4 Abnormal results of kidney function studies Office Visit 11/26/2016 1:30p [facility] R42 Dizziness and [facility] [place] Bruce Office Visit 11/20/2016 11:30a [facility] Jameson Ibanez J01.90 Acute sinusitis, Wanda Reyes M.D.,FAC unspecified Ccmob Office Visit 11/13/2016 8:00a [facility] Aurelio Davidson [employer] R94.4 Abnormal results Medicine - of kidney Suite R function studies R03.0 Elevated blood-pressure reading, w/o diagnosis of htn R06.02 Shortness of breath R42 Dizziness and giddiness Office Visit 03/27/2016 8:30a [facility] Jameson Ibanez Z00.01 Encounter for Wanda Reyes M.D.,FACP [facility] w abnormal findings 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 Z12.5 Encounter for screening for malignant neoplasm of prostate J45.40 Moderate persistent asthma, uncomplicated Office Visit 08/30/2015 9:10a [facility] Jameson Reyes, R06.2 Wheezing Medicine - Cristian Martinez,FACP Z23 Encounter for immunization Office Visit 06/24/2015 1:00p [facility] Virgil Rowe, Z01.818 Encounter for other Medicine - [employer] preprocedural Ccmob examination H25.9 Unspecified age-related cataract 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 AT Juan Rosado Resonance Bruce Disorder, Unspecified 784.49 Other Voice And Resonance Disorders Office Visit 03/25/2015 3:00p [facility] Jameson Ibanez V70.0 Examination Wanda Reyes M.D.,[facility] General Medical Suite R Routine AT Health Care Facility 257.2 Testicular Hypofunction Other 414.01 Coronary Atherosclerosis [place] 473.9 Sinusitis Chronic Unspec Office Visit 03/04/2015 11:20a [facility] Jim Mackenzie 472.0 Rhinitis Chronic Medicine - Cristian Cortes M.D. Office Visit 11/30/2014 11:20a [facility] Jim Mackenzie 466.0 Bronchitis Acute Medicine - Cristian Cortes M.D. Office Visit 11/17/2014 8:00a [facility] Cedric 466.0 Bronchitis Acute Medicine - Cristian Bunn M.D. 782.3 Edema Office Visit 09/06/2014 [facility] Jameson Ibanez 287.2 [place]pur[place] 10:10a Wanda Reyes, Nonthrombocytopenic Cristian Martinez,[facility] Other 257.2 Testicular Hypofunction Other 414.01 Coronary Atherosclerosis [place] 788.69 Urinary Abnormaltiy Other V04.81 Need For Prophylactic Vaccination & Inoculation/Influenza V03.82 Streptococcus Pneumoniae Vaccination Spec Other Office Visit 02/22/2014 9:30a [facility] Jameson Ibanez 257.2 Testicular Wanda Reyes M.D.,FACP Hypofunction Other Ccmob Office Visit 01/22/2014 9:00a [facility] Jameson Ibanez V70.0 Examination Wanda Reyes M.D.,[facility] General Medical Ccmob Routine AT Health Care Facility 724.03 Spinal Stenosis, Lumbar Region W/ Neurogenic Claudication 414.01 Coronary Atherosclerosis [place] 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 Unspec Genlzd Or C.M.A. Localized Pelvic & Thigh 726.5 Enthesopathy Of Hip Region Office Visit 01/20/2013 10:30a [facility] Jameson Ibanez V70.0 Examination Wanda Reyes M.D.,[facility] 715.95 Osteoarthrosis Unspec Genlzd Or Localized Pelvic & Thigh 414.01 Coronary Atherosclerosis [place] 472.0 Rhinitis Chronic Office Visit 11/17/2012 [facility] Willa Ibanez 715.91 Osteoarthrosis 2:20p Wanda Reyes M.D.,[facility] Unspec Genlzd Or Ccmob Localized Shoulder 414.01 Coronary Atherosclerosis [place] Office Visit 10/21/2012 2:00p Husam Foster 715.91 Osteoarthrosis Services Of M.D. Unspec Genlzd Or C.M.A. Localized Shoulder Office Visit 09/23/2012 9:15a Husam Foster 715.16 Osteoarthrosis Services Of M.D. Localized Prim Lower C.M.A. Leg 715.91 Osteoarthrosis Unspec Genlzd Or Localized Shoulder Office Visit 08/01/2012 9:00a Husam Foster 715.16 Osteoarthrosis Services Of M.D. Localized Prim Lower C.M.A. Leg Office Visit 07/10/2012 9:15a Husam Foster 715.16 Osteoarthrosis Services Of M.D. Localized Prim Lower C.M.A. Leg Office Visit 02/28/2012 9:30a [facility] Willa Ibanez 786.59 Pain Chest Other [facility] 693.0 Dermatitis Due To Drugs & Medicines 782.3 Edema Office Visit 12/14/2011 2:40p [facility] Jameson Ibanez 693.0 Dermatitis Due To Wanda Reyes M.D.,[facility] Drugs & Medicines Ccmob Office Visit 12/03/2011 9:10a [facility] Jameson Ibanez 693.0 Dermatitis Due To Wanda Reyes M.D.,FACP Drugs & Medicines Cristian 110.3 Dermatophytosis Groin & Perianal Area Office Visit 11/23/2011 [employer] Internal Jameson Ibanez 112.3 Candidiasis Skin & 4:40p Medicine - Cristian Reyes M.D.,[facility] Nails Office Visit 10/15/2011 Orthopedic Chetan Foster, 715.91 Osteoarthrosis 9:15a Services Of Juan Unspec Genlzd Or C.M.A. Localized Shoulder Office Visit 08/08/2011 DO Not Use [employer] Jameson Ibanez V70.0 Examination General 8:30a AT Cristel Reyes M.D.,[facility] Medical Routine AT Health Care Facility 414.01 Coronary Atherosclerosis [place] 726.19 Shoulder Disorders Other Spec 473.9 Sinusitis Chronic Unspec V04.81 Need For Prophylactic Vaccination & Inoculation/Influenza Office Visit 10/05/2010 8:40a DO Not Use [employer] Jameson Ibanez 786.50 Pain Chest AT Cristel Reyes M.D.,[facility] Unspec 535.00 Gastritis Acute W/O Hemorrhage 414.01 Coronary Atherosclerosis [place] Office Visit 07/07/2010 DO Not Use [employer] Jameson Ibanez 414.01 Coronary 2:00p AT Cristel Reyse M.D.,[facility] Atherosclerosis [place] 285.9 Anemia Unspec V04.81 Need For Prophylactic Vaccination & Inoculation/Influenza v04.81 Need For Prophylactic Vaccination & Inoculation/Influenza Office Visit 06/01/2010 4:00p DO Not Use [employer] Jameson Ibanez 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.,[facility]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 386.19 Vertigo Aural & Otogenic Other 414.01 Coronary Atherosclerosis [place] Office Visit 05/18/2010 3:40p DO Not Use [employer] Shanindchirstiano, 477.8 Rhinitis AT Cristel Bautista MD Allergic Due To Other Allergen 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 Office Visit 05/08/2010 9:20a DO Not Use [employer] Cedric Bunn, 386.12 Vestibular AT Cristel Martinez Neuronitis 401.1 Hypertension Benign Office Visit 05/26/2009 DO Not Use [employer] Jameson Ibanez 414.01 Coronary 2:40p AT Cristel Reyes M.D.,[facility] Atherosclerosis [place] 272.2 Hyperlipidemia Mixed V76.51 Special Screening For Malignant Neoplasms Colon Office Visit 12/16/2008 2:00p DO Not Use [employer] AT Jameson Reyes, 724.2 Lumbago Cristel Martinez,FACP 272.2 Hyperlipidemia Mixed Office Visit 10/22/2008 DO Not Use [employer] Jameson Ibanez 719.46 Pain Joint Lower Leg 1:20p AT Cristel Reyes M.D.,FAC Office Visit 08/26/2008 DO Not Use [employer] Jameson Ibanez 414.01 Coronary 9:20a AT Cristel Reyes M.D.,[facility] Atherosclerosis [place] 477.8 Rhinitis Allergic Due To Other Allergen 780.52 Insomnia Unspecified Office Visit 06/14/2008 DO Not Use [employer] Jameson Ibanez 414.01 Coronary 9:00a AT Cristel Reyes M.D.,[facility] Atherosclerosis [place] 272.2 Hyperlipidemia Mixed 717.40 Derangement Lateral Meniscus Unspec 257.2 Testicular Hypofunction Other Office Visit 04/06/2008 1:40p DO Not Use [employer] Jameson Ibanez 717.40 Derangement AT Cristel Reyes M.D.,[facility] Lateral Meniscus Unspec Plan of Treatment Future Appointment(s):10/28/2019 1:00 pm - Jim Cortes M.D. at [facility] - Jim Cortes M.D.Z00.00 Encounter for general adult medical examination without abnoComments:Tdap today. (+) eye exams. No denture problems. No regular exercise and adult exercise goals discussed. PT eval for conditioning suggested.I25.10 Atherosclerotic heart disease of [place] coronary artery withNew Therapy:Physical TherapyComments:No cardiac c/o, but stamina limited and no regular exercise; PT eval for general conditioning [id number] Moderate persistent asthma, uncomplicatedComments: Stable with RxE78.2 Mixed hyperlipidemiaComments:On Rx; recheck labs with next cnvefI65.1 Testicular hypofunctionComments:On RxFollow up:6 months with repeat labs or prnZ23 Encounter for immunizationComments:Tdap today; discussed the new shingles vaccine
[2019-05-06 09:23] VITALS: BP 159/88
--- NOTE | 2019-05-06 09:25 | UC ---
Skin Complaint HPI - HPI Summary HPI Summary: 84 year old male with a history of lower leg edema noticed a fluid filled blister on right lower leg. He usually wears compression stockings. He has had no specific injury. He usually has leg edema and takes a fluid pill "when I feel I need one." He denies any difficulty breathing or chest pain. No other complaints. - History of Current Complaint Chief Complaint: UCSkin Time Seen by Provider: 05/06/19 09:25 Stated Complaint: SKIN COMPLAINT Hx Obtained From: Patient Onset/Duration: Gradual Onset Skin Exposure Onset/Duration: Hours Ago - Just noticed today. Onset Severity: Mild Current Severity: Mild Pain Intensity: 0 Location: Other - Right lower leg Aggravating Factor(s): Nothing, Other - Possibly his compression stockings Alleviating Factor(s): Other - When he elevates his feet at night the swelling is diminished in the morning Associated Signs & Symptoms: Positive: Negative - Allergy/Home Medications Allergies/Adverse Reactions: Allergies Allergy/AdvReac Type Severity Reaction Status Date / Time hydrocodone Allergy GI Upset Verified 05/06/19 09:24 Home Medications: Home Medications Aspirin 81 mg CHEW TAB* [Aspirin Low Dose TAB*] 81 mg PO DAILY 05/06/19 [ History Confirmed 05/06/19] Ezetimibe TAB* [Zetia TAB*] 10 mg PO DAILY 05/06/19 [History Confirmed 05/06/19] Furosemide TAB* [Lasix TAB*] 20 mg PO DAILY PRN 05/06/19 [History Confirmed ] Metoprolol Succinate XL TAB* [Toprol XL TAB*] 25 mg PO DAILY 05/06/19 [History Confirmed 05/06/19] Testosterone Gel 25 mg (Nf) [Testosterone Gel 25 mg/2.5 g] 25 mg TOPICAL DAILY 05/06/19 [History Confirmed 05/06/19] PMH/Surg Hx/FS Hx/Imm Hx Previously Healthy: Yes Cardiovascular History: Other - Lower leg edema, the right worse than the left Respiratory History: Asthma - Surgical History Surgical History: Yes Surgery Procedure, Year, and Place: cardiac stent 2000, hernia x 2 - Family History Known Family History: Positive: Hypertension - Social History Occupation: Retired Alcohol Use: None Substance Use Type: None Smoking Status (MU): Never Smoked Tobacco Review of Systems All Other Systems Reviewed And Are Negative: Yes Skin: Positive: Other - Fluid fillied blister right lower leg. Denies calf pain Is Patient Immunocompromised?: No Physical Exam Triage Information Reviewed: Yes Appearance: Well-Appearing, No Pain Distress, Well-Nourished Vital Signs: Initial Vital Signs Temp 97.3 F 05/06/19 09:18 Pulse 85 05/06/19 09:18 Resp 16 05/06/19 09:18 BP 159/88 05/06/19 09:18 Pulse Ox 94 05/06/19 09:18 Vital Signs Reviewed: Yes Respiratory: Positive: Lungs clear, Normal breath sounds, No respiratory distress, No accessory muscle use Cardiovascular: Positive: RRR, No Murmur, Pulses Normal, Brisk Capillary Refill Musculoskeletal: Positive: Edema @ - Lower extremities, 2+ on right , 1+ on left. Neurological: Positive: Alert, Muscle Tone Normal Psychological Exam: Normal Skin: Positive: Other - Clear fluid-filled blister right lower leg posteriorly, No erythema, non-tender, no streaking. Good peripheral pulses, neurosensation, cap refill, calves non-tender Course/Dx - Course Course Of Treatment: Reassurance given this is not an infection. Pt to keep his legs elevated as much as possible. Definite follow up with his PCP on Saturday or Saturday for a recheck. - Diagnoses Provider Diagnosis: Pedal edema Discharge - Sign-Out/Discharge Documenting (check all that apply): Patient Departure All imaging exams completed and their final reports reviewed: No Studies - Discharge Plan Condition: Fair Disposition: HOME Patient Education Materials: Blister (ED) Referrals: Jim Cortes MD [Primary Care Provider] - Additional Instructions: Elevate as much as possible, keep the dressing on the area and change daily. Follow-up with your primary care provider for recheck early next week. Follow- up sooner if you develop any signs of infection such as hot, red, tender, pus drainage, red streaks up your leg, fever. - Billing Disposition and Condition Condition: FAIR Disposition: Home - Attestation Statements Provider Attestation: I was available for consult. This patient was seen by the RASHID. The patient was not presented to, seen by, or examined by me. Neftaly Lance MD
== END 2019-05-06 09:45 | disposition home or self-care (01) ==
LOC: UCEAST 08:51
DX: R60.9 Edema, unspecified (principal); J45.909 Unspecified asthma, uncomplicated; Z79.82 Long term (current) use of aspirin
CPT/HCPCS: 99211; G0463